=== PATIENT | male | born 1955 | race Caucasian/White ===

== ENCOUNTER → 2019-06-15 15:16 | Outpatient (CLI) | payer MEDICARE, SELFPAY ==
[2019-06-15 18:15] LABS: Anion Gap 9 (5-15); BUN 18 mg/dL (7-18); BUN/Creat Ratio 14.6 RATIO (10-20); Calcium,Total 9.1 mg/dL (8.5-10.1); Chloride 104 mmol/L (98-107); Cholesterol 201 mg/dL (200); Creatinine, Serum 1.23 mg/dL (0.70-1.30); EST Glomerular Filtration Rate 63 mL/min (>60); Est Glom Filt Rate - Afr Amer 76 mL/min (>60); Glucose 93 mg/dL (74-106); High Density Lipoprotein 24 mg/dL; PSA,Total - Annual Screen 1.08 ng/mL (0.00-4.00); Potassium 3.9 mmol/L (3.5-5.1); Sodium Level 139 mmol/L (136-145); Triglycerides 607 mg/dL
[2019-06-15 18:20] LABS: Hemoglobin A1c 5.8 % (4.2-6.3)
== END ==
PROVIDERS: Family Provider Family Medicine; PCP Family Medicine; Referring Provider Family Medicine; Visit Provider Family Medicine
DX: Z00.00 Encounter for general adult medical examination without abnormal findings (principal); E66.01 Morbid (severe) obesity due to excess calories; N40.0 Benign prostatic hyperplasia without lower urinary tract symptoms
CPT/HCPCS: 36415; 80048; 80061; 83036; 84153; G0103

== ENCOUNTER → 2019-08-09 14:55 | Outpatient (CLI) | payer MEDICARE, SELFPAY ==
[2019-08-09 18:29] LABS: AST(SGOT) 22 U/L (15-37); Alanine Aminotransfer ALT/SGPT 43 U/L (16-61); Cholesterol 156 mg/dL (200); High Density Lipoprotein 23 mg/dL; Triglycerides 627 mg/dL
== END ==
PROVIDERS: Family Provider Family Medicine; PCP Family Medicine; Visit Provider Family Medicine
DX: E78.5 Hyperlipidemia, unspecified (principal)
CPT/HCPCS: 36415; 80061; 84450; 84460

== ENCOUNTER → 2020-01-24 10:35 | Outpatient (CLI) | payer MEDICARE, SELFPAY ==
[2020-01-24 12:23] LABS: AST(SGOT) 14 U/L (15-37); Alanine Aminotransfer ALT/SGPT 34 U/L (16-61); Cholesterol 129 mg/dL (200); High Density Lipoprotein 27 mg/dL; Triglycerides 281 mg/dL; Very Low Density Lipoprotein 56 mg/dL (5-40)
== END ==
PROVIDERS: PCP Family Medicine; Visit Provider Family Medicine
DX: E78.5 Hyperlipidemia, unspecified (principal)
CPT/HCPCS: 36415; 80061; 84450; 84460

== ENCOUNTER → 2020-08-28 13:11 | Outpatient (CLI) | payer MEDICARE, SELFPAY ==
--- NOTE | 2020-08-28 14:44 | NEURO ---
NCS and/or EMG Patient Report Ordering Doctor: Rhonda Hunter DATE OF SERVICE: 08/28/20 Indication: Bilateral hand numbness and wrist pain (right greater than left). Evaluate for median nerve impingement and/or cervical radiculopathy. Findings: Nerve conduction studies were performed in the right and left upper extremities. The right median motor study recording the abductor pollicis brevis showed a normal amplitude, prolonged distal latency and slowed conduction velocity. The right ulnar motor study recording the abductor digiti minimi showed a normal amplitude, normal distal latency and normal conduction velocity. No conduction block or focal slowing was present across the elbow. The right median sensory response recording digit two showed an absent response. The right median sensory response recording digit three showed an absent response.The right ulnar sensory response recording digit five showed a normal amplitude, normal latency and borderline conduction velocity. The right radial sensory response recording over the extensor snuff box showed a normal amplitude, latency and conduction velocity. The left median motor study recording the abductor pollicis brevis showed a normal amplitude, prolonged distal latency and slowed conduction velocity. The left ulnar motor study recording the abductor digiti minimi showed a normal amplitude, normal distal latency and normal conduction velocity. No conduction block or focal slowing was present across the elbow. The left median sensory response recording digit two showed a reduced amplitude, prolonged latency and slowed conduction velocity. The left median sensory response recording digit three showed a reduced amplitude, prolonged latency and slowed conduction velocity. The left ulnar sensory response recording digit five showed a normal amplitude, latency and conduction velocity. The left radial sensory response recording over the extensor snuff box showed a normal amplitude, latency and conduction velocity. Right median-ulnar lumbrical / interosseous motor latencies showed a normal median latency compared to the ulnar. Left median-ulnar lumbrical / interosseous motor latencies showed a normal median latency compared to the ulnar. Needle EMG of the right upper extremity and cervical paraspinal muscles was performed. No denervation was seen in any muscle. The right abductor pollicis brevis muscle revealed motor units which were large amplitude, long duration, polyphasic with reduced recruitment. All other examined muscled revealed normal motor unit morphology, activation and recruitment patterns. Needle EMG of the left abductor pollicis brevis muscle was performed. No active denervation was seen. Motor units were large amplitude, long duration, polyphasic with reduced recruitment. Impression: This is an abnormal study. There is electrophysiologic evidence of median neuropathy across the wrist on both sides (severe on the right, moderately severe on the left). These findings are compatible with the clinical diagnosis of carpal tunnel syndrome. In addition, there is no electrophysiologic evidence of cervical radiculopathy or other entrapment neuropathy in the right upper extremity. Mychal Hatch D.O.
== END ==
PROVIDERS: PCP Family Medicine; Referring Provider Family Medicine; Visit Provider Family Medicine
DX: R20.0 Anesthesia of skin (principal)
CPT/HCPCS: 95885; 95886; 95913

== ENCOUNTER 2021-11-02 11:10 | Outpatient (CLI) | payer MEDICARE, SELFPAY ==
[2021-11-02 12:38] LABS: AST(SGOT) 20 U/L (15-37); Alanine Aminotransfer ALT/SGPT 44 U/L (16-61); Cholesterol 138 mg/dL (200); High Density Lipoprotein 30 mg/dL; PSA,Total - Annual Screen 0.77 ng/mL (0.00-4.00); Triglycerides 266 mg/dL; Very Low Density Lipoprotein 53 mg/dL (5-40)
== END 2021-11-02 23:59 | disposition home or self-care (01) ==
LOC: MFPLAB 11:13
PROVIDERS: PCP Family Medicine; Referring Provider Family Medicine; Visit Provider Family Medicine
DX: E78.5 Hyperlipidemia, unspecified (principal); Z12.5 Encounter for screening for malignant neoplasm of prostate
CPT/HCPCS: 36415; 80061; 84153; 84450; 84460; G0103

== ENCOUNTER → 2022-11-04 | Outpatient (CLI) | payer MEDICARE, SELFPAY ==
[2022-11-04 12:29] LABS: AST(SGOT) 19 U/L (15-37); Alanine Aminotransfer ALT/SGPT 36 U/L (16-61); Cholesterol 145 mg/dL (200); High Density Lipoprotein 29 mg/dL; PSA,Total - Annual Screen 0.75 ng/mL (0.00-4.00); Triglycerides 306 mg/dL; Very Low Density Lipoprotein 61 mg/dL (5-40)
[2022-11-04 12:53] LABS: Hemoglobin A1c 5.9 % (3.8-5.6)
== END | disposition home or self-care (01) ==
PROVIDERS: PCP Family Medicine; Referring Provider Family Medicine; Visit Provider Family Medicine
DX: Z00.00 Encounter for general adult medical examination without abnormal findings (principal); E66.01 Morbid (severe) obesity due to excess calories; E78.5 Hyperlipidemia, unspecified; Z12.5 Encounter for screening for malignant neoplasm of prostate
CPT/HCPCS: 36415; 80061; 83036; 84153; 84450; 84460; G0103

== ENCOUNTER 2023-07-09 14:30 | Outpatient (RCR) | payer MEDICARE, SELFPAY ==
--- NOTE | 2023-07-02 15:09 | HP.PTEVAL_ITS ---
Patient's Visit Information Visit Information Visit Information: STAN LOREDO is a 67 year old M referred to Physical Therapy by Dr. Rhonda Hunter MD with a diagnosis of L shoulder strain. Date of Evaluation: 07/02/23 Physical Therapist: Donovan Hardy, TYT, OCS, CSCS Visit Plan Frequency: 1x/Week Duration: 4-6 Weeks Plan: weekly x2-4 as needed to ensure painfree without meds, regain painfree ROM and get I with appropriate strength RC or scap. next session check if painfree and good ROM then teach phase 3 and consider d/c Subjective Subjective: L shoulder hurt for a week. Not sure why. Two weeks ago was moving furniture that may have aggravated it but did not do anything to it. Could not get dresses that Friday. Went to Massage on Friday. Went to doctor last Friday still with pain. been on that 3 days and seems like it has been back to normal. Was put on ibuprofen. Took it for 3-4 days and now is backing off of it. It hurts top of L shoulder and worse with arm movement. Could not move arm or button anything. It has now felt good for 2 days. Activity is normal for last two days and split firewood last ngiht without a problem. Seems 100% back to normal right now. Sleeping well now but was hard last week. 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 Able to do them right now, last week would be tough. Pain L shoulder: Pain Intensity (Out of 10): 0 Pain Intensity Range: 0 and 9 Comment: not in 2-3 days Objective Objective: Walks and transfers I into PT. Forward head adn protracted scap posture, Pec tightness noticeable. Tender to palpation over L supraspinatus insertion and bursa point. AROM B shoulders is tight in flexion but symmetrical , slight pain end range L, haroon/ir symmetrical but slight L end range pain. elbows and scapula and wrists WFL with some tightness with scapular depression and retracion B. reflexes 2/3 bi and tri B Sensation B UE WNL to gross light touch strength is 4+/5 in B shoulders. Some pain with er and flexion resisted. + HK and + neer on L - ext rotation lag test. Balance/Special Test Scores Quick DASH Score: 47.7250 Goals Goal 1:: Remain 100% better with activity without ibuprofen Goal Time Frame: 4-6 Weeks Goal 2:: I appropr HEP to minimize chance of returning pain in future Goal Time Frame: 4-6 Weeks Rehabilitation Potential Physical Therapy Diagnosis: L shoulder pain which was limiting function but is much improved. Rehabilitation Potential: Excellent Anticipated Interventions Patient/Client Instruction: Educate patient on: Condition and Plan of Care For the Purpose of:: To decrease pain, To improve nutrient delivery to tissue, To improve muscle performance and motor function, To increase tolerance to activity/condition/position, To improve ability of physical actions for home/community/work/leisure and To decrease soft tissue restriction Therapeutic Exercise to Include: Strength training, Flexibilty training, Passive ROM and Active ROM For the Purpose of:: To decrease pain, To increase ROM, To improve nutrient delivery to tissue, To improve muscle performance and motor function and To increase tolerance to activity/condition/position Text: Thank you for the opportunity to evaluate your patient. For Medicare and Medicare HMO plans, please review the plan of care and approve it. It will need to be FAXED BACK to us at [phone] for Medicare purposes. For Medicare only, by signing this I certify the plan of care. Please let me know if there are questions or concerns regarding this plan of care. Physician Signature:_ Date:
--- NOTE | 2023-10-24 14:25 | HP.PTDCNRP_ITS ---
Patient Information Patient Information: STAN LOREDO was seen in my office for initial evaluation on 07/02/23. The following Plan of Care was established for this patient: POC Established Initial Frequency: 1x/Week Initial Duration: 4-6 Weeks Anticipated Interventions Patient/Client Instruction: Educate patient on: Condition and Plan of Care For the Purpose of:: To decrease pain, To improve nutrient delivery to tissue, To improve muscle performance and motor function, To increase tolerance to activity/condition/position, To improve ability of physical actions for home/ community/work/leisure and To decrease soft tissue restriction Therapeutic Exercise to Include: Strength training, Flexibilty training, Passive ROM and Active ROM For the Purpose of:: To decrease pain, To increase ROM, To improve nutrient delivery to tissue, To improve muscle performance and motor function and To increase tolerance to activity/condition/position Last Seen Last Seen: This patient was last seen in our office 07/09/24. Pertinent comments regarding their Physical therapy will appear below: Pt seen 2 visits of PC adn was to f/u two weeks later but did not return. At this point, it has been over 3 months and I will discontinue due to nonattendance At this point I will be discontinuing this patient from physical therapy. I would be happy to see this patient again in the future if found appropriate by the physician. Thank you! Donovan Hardy, DPT, OCS, CSCS Balance/Gait/Functional tests Balance/Special Test Scores Quick DASH Score: 47.7211
== END 2023-07-09 19:00 | disposition home or self-care (01) ==
LOC: PT 14:30
PROVIDERS: PCP Family Medicine; Referring Provider Family Medicine; Visit Provider Family Medicine
DX: S43.402D Unspecified sprain of left shoulder joint, subsequent encounter (principal)
CPT/HCPCS: 97110; 97161

== ENCOUNTER 2023-11-14 04:49 | Emergency (ER) | payer MEDICARE, SELFPAY ==
[2023-11-14 04:50] VITALS: BP 173/90; PULSE 76; RESP 20; TEMP 36.7; O2SAT 94; BMI 42.3
--- NOTE | 2023-11-14 05:08 | CT_ITS ---
EXAM: CT ABDOMEN AND PELVIS WITHOUT INTRAVENOUS CONTRAST CLINICAL INDICATION: left flank pain TECHNIQUE: Helically acquired images were obtained of the abdomen and pelvis without intravenous contrast. This CT exam was performed using one or more of the following dose reduction techniques: automated exposure control, adjustment of the mA and/or kV according to patient size, and/or use of iterative reconstruction technique. RADIATION DOSE: CTDIvol = 22.86 mGy, DLP = 1136.52 mGy-cm COMPARISON: No relevant prior studies available. FINDINGS: LOWER THORAX: Unremarkable. Lung bases are clear. No cardiomegaly. No significant pericardial effusion. ABDOMEN: LIVER: There is diffuse low-attenuation of the liver. Hepatomegaly. GALLBLADDER AND BILE DUCTS: Unremarkable. No calcified gallstones. No gallbladder distention or wall edema. No intra- or extrahepatic biliary ductal dilation. PANCREAS: Unremarkable. No focal cystic mass. SPLEEN: Unremarkable. Normal size without focal cystic or solid mass. ADRENALS: Unremarkable. No nodules. KIDNEYS AND URETERS: Mild left hydroureteronephrosis due to a 2 mm stone at the left ureterovesical junction. Nonobstructing stone measuring 6 x 7 x 12 mm lower pole left kidney. Nonobstructing stone measuring 17 x 7 x 8 mm upper pole left kidney. Simple left renal cyst. No follow-up of this simple cyst is necessary. STOMACH AND BOWEL: Unremarkable. No stomach or bowel distention. No focal inflammatory change. PELVIS: APPENDIX: No evidence of acute appendicitis. BLADDER: Unremarkable. REPRODUCTIVE: Unremarkable as visualized. No mass. ABDOMEN and PELVIS: INTRAPERITONEAL SPACE: Unremarkable. No ascites or other fluid collection. No free air. BONES/JOINTS: Unremarkable. No suspicious lytic or blastic abnormality. SOFT TISSUES: Unremarkable. No discrete abdominal or pelvic wall hernia. VASCULATURE: Unremarkable. Abdominal aorta is non-dilated. LYMPH NODES: Unremarkable. No enlarged lymph nodes. CT/Abdomen/Pelvis without Cont IMPRESSION: 1. Mild left hydroureteronephrosis due to a 2 mm stone at the left ureterovesical junction. 2. Enlarged fatty liver. 3. Nonobstructing stone measuring 6 x 7 x 12 mm lower pole left kidney. Nonobstructing stone measuring 17 x 7 x 8 mm upper pole left kidney. Electronically Signed: Prashant Celis MD at 5:47 EDT ,
[2023-11-14] MEDS: 0.9% Normal Saline (1000mL) 1,000 ML 999 ML IV (05:13)
[2023-11-14] MEDS: Ketorolac 15 MG/ML Vial IV (05:14)
[2023-11-14] MEDS: Ondansetron 4 MG/2 ML Vial IV (05:14)
[2023-11-14 05:17] LABS: Basophil# 0.05 X10^3/uL; Basophil% 0.8 % (0-1); Eosinophil# 0.11 X10^3/uL; Eosinophils% 1.7 % (0-5); Hematocrit 48.2 % (40-54); Hemoglobin 15.9 g/dL (13.0-16.5); Lymphocyte % 15.1 % (19-41); Mean Corpuscular Hgb 30.2 pg (27.0-32.0); Mean Corpuscular Volume 91.6 fL (80-94); Mean Platelet Vol. 8.6 fl (6.2-12.0); Monocyte# 0.43 X10^3/uL; Monocyte% 6.5 % (0-10); NRBC Flagged by Analyzer 0 % (0-5); Neutrophil # 4.95 X10^3/uL (2.7-7.7); Neutrophil % 74.8 % (47-70); Platelet Count 192 K/mm3 (150-450); RBC Distribution Width CV 12.5 % (11.6-14.6); RBC Distribution Width SD 41.7 fl (35.1-43.9); Red Blood Count 5.26 M/mm3 (4.6-6.2); White Blood Count 6.6 K/mm3 (4.4-11.0)
[2023-11-14 05:41] LABS: Anion Gap 5 (5-15); BUN 14 mg/dL (7-18); BUN/Creat Ratio 10.4 RATIO (10-20); Calcium,Total 8.8 mg/dL (8.5-10.1); Chloride 108 mmol/L (98-107); Creatinine, Serum 1.35 mg/dL (0.70-1.30); EST Glomerular Filtration Rate 56 mL/min (>60); Est Glom Filt Rate - Afr Amer 67 mL/min (>60); Estimated Creatinine Clearance 65.91 ml/min; Glucose 180 mg/dL (74-106); Potassium 3.7 mmol/L (3.5-5.1); Sodium Level 139 mmol/L (136-145)
[2023-11-14 05:47] LABS: Color, Urine Yellow (Yellow); Glucose, Dipstick Normal (Normal); Ketone-Dipstick 5 mg/dl (Negative); Leukocyte Esterase-Dipstick 25 /ul (Negative); Nitrite-Dipstick Negative (Negative); Occult Blood-Urine 250 /ul (Negative); Protein-Dipstick 100 mg/dl (Negative); Urine Bilirubin Dipstick Negative (Negative); Urine Clarity Clear (Clear); Urine Urobilinogen Normal (Normal)
[2023-11-14 05:54] LABS: Bacteria 2+ /hpf (None Seen); Hyaline Cast 0-5 SEEN /lpf (0-5); Mucous, Urine 2+ /hpf (<or=2+); Red Blood Cells-Urine 10-25 SEEN /hpf (0-5); Squamous Epithelial Cells - UA 0-5 SEEN /hpf (0-5); White Blood Cells 0-5 SEEN /hpf (0-5)
--- NOTE | 2023-11-14 06:11 | EX.ED.DYSGE1 ---
HPI History of Present Illness Chief Complaint: Abd Pain Informant: patient and spouse/S.O. Narrative Narrative: Patient is a 68-year-old male with past medical history of hyperlipidemia. He states that he went to bed feeling normal then awoke with sharp left-sided abdominal pain and nausea associated with the pain. He denies any recent trauma or excessive activity. He denies any recent constipation or loose stool/diarrhea. He also denies any dysuria or hematuria. He states that he tried [id number] medication without symptom improvement and secondary to this comes in for evaluation [facility] Medical History High cholesterol Home Medications atorvastatin 20 mg tablet 20 mg PO QHS 11/14/23 [History Last Taken Unknown] cephalexin 500 mg capsule 500 mg PO TID 7 days #21 caps 11/14/23 [Rx Last Taken Unknown] ketorolac 10 mg tablet 10 mg PO 4X/DAY PRN pain 5 days #20 tabs 11/14/23 [Rx Last Taken Unknown] ondansetron 4 mg disintegrating tablet 4 mg PO TID PRN nausea and vomiting #21 tabs 11/14/23 [Rx Last Taken Unknown] oxycodone-acetaminophen 5 mg-325 mg tablet (Percocet) 1 tab PO Q6H PRN pain 3 days #12 tabs 11/14/23 [Rx Last Taken Unknown] tamsulosin 0.4 mg capsule (Flomax) 0.4 mg PO DAILY #14 caps 11/14/23 [Rx Last Taken Unknown] Allergy/AdvReac Type Severity Reaction Status Date / Time No Known Allergies Allergy Verified 11/14/23 04:57 Social History Smoking Status: Never smoker ROS [facility] ED Constitutional Constitutional ED: Denies chills or fever(s) ENT ENT ED: Denies sore throat Cardiovascular Cardiovascular: Denies chest pain Respiratory/Chest Respiratory/Chest: Denies cough or dyspnea Gastrointestinal Gastrointestinal: Reports abdominal pain and nausea; Denies diarrhea or vomiting Genitourinary Genitourinary ED: Denies dysuria or hematuria Musculoskeletal Musculoskeletal: Reports back pain; Denies myalgias Integumentary Denies rash Neurologic Neurologic: Denies headache(s) Hematologic/Lymphatic Hematologic/Lymphatic: Denies easy bleeding or easy bruising EXAM Physical Exam Const Vital Signs: 11/14/23 04:50 Temperature 98.0 F Temperature Source Oral Pulse Rate 76 Respiratory Rate 20 H Blood Pressure 173/90 H Blood Pressure Mean 117 Pulse Ox 94 Oxygen Delivery Method Room Air Positive well nourished, well developed and obese General Appearance ED: well developed; Negative for pallor Nutritional Appearance: obese HEENT HEENT Narrative: Normocephalic atraumatic Eyes PERRL and EOMs intact bilaterally General Eye ED: Negative for scleral icterus Neck supple Neck Narrative: No nuchal rigidity or meningeal signs noted Resp normal respiratory effort and clear to auscultation bilaterally Cardio regular rate and regular rhythm Rate: other Other Details: Radial and carotid pulses are equal and symmetric GI non-distended and no masses GI Narrative: Abdomen is soft and nondistended with normal active bowel sounds. There is pain on palpation in the left mid to upper abdomen without voluntary guarding or rigidity. No pulsatile mass or fluid wave Auscultation: normoactive bowel sounds Palpation: soft Back/Spine Back/Spine Narrative: Positive left CVA pain noted Extremity normal to inspection Neuro oriented x3, CN's II-XII intact bilaterally and no sensory deficits noted Sensorium / Orientation: alert Motor Exam: strength 5/5 throughout Psych mental status grossly normal Skin no rashes or lesions noted and no wounds General Skin Exam: Negative for jaundice or pallor MDM MDM MDM Narrative Medical decision making narrative: Patient presented to the ER hypertensive otherwise with stable vitals. He reported a rather sudden onset of pain localized around the left sided abdomen. Differential diagnosis is for kidney stone versus UTI versus pyelonephritis versus diverticulitis. As patient's pain is located mainly around the left flank region this is higher likelihood for stone and it is diverticular disease. Therefore basic labs were obtained as well as a noncontrast CT scan. Labs showed no clinically significant findings such as acute kidney injury or elevation to the white count or severe electrolyte abnormality. Urine sample did show blood consistent with stone and there is +2 bacteria with no white blood cells. This is most likely normal urogenital yumiko but with the patient having a CT scan that documented a stone with hydroureteronephrosis there is potential for developing infection so he will be placed on antibiotics. At this time the patient does not have MEGHNA or urosepsis he does report improvement of pain on the Toradol and therefore there is no need for emergent urology consultation or admission. Patient will be discharged with symptomatic medications and can follow-up with urology on an outpatient basis to have potential stent placement if he is not able to spontaneously pass the stone History & Record Review Discussion w/independent historian: Patient and Significant other Lab Data Labs: Laboratory Results - last 24 hr 11/14/23 11/14/23 05:04 05:35 WBC 6.6 RBC 5.26 Hgb 15.9 Hct 48.2 MCV 91.6 MCH 30.2 MCHC 33.0 RDW Std Deviation 41.7 RDW Coeff of Mamadou 12.5 Plt Count 192 MPV 8.6 Immature Gran % (Auto) 1.100 H Neut % (Auto) 74.8 H Lymph % (Auto) 15.1 L [place] % (Auto) 6.5 Eos % (Auto) 1.7 Baso % (Auto) 0.8 Absolute Neuts (auto) 5.0 Absolute Lymphs (auto) 1.00 Nucleated RBC % 0 Sodium 139 Potassium 3.7 Chloride 108 H Carbon Dioxide 26.0 Anion Gap 5 BUN 14 Creatinine 1.35 H Estim Creat Clear Calc 65.91 Est GFR (MDRD) Af Amer 67 Est GFR (MDRD) Non-Af 56 L BUN/Creatinine Ratio 10.4 Glucose 180 H Calcium 8.8 Urine Color Yellow Urine Clarity Clear Urine pH 5.0 Ur Specific [place] 1.030 Urine Protein 100 H Urine Glucose (UA) Normal Urine Ketones 5 H Urine Occult Blood 250 H Urine Nitrite Negative Urine Bilirubin Negative Urine Urobilinogen Normal Ur Leukocyte Esterase 25 H Urine RBC 10-25 SEEN Urine WBC 0-5 SEEN Ur Squamous Epith Cells 0-5 SEEN Urine Bacteria 2+ Hyaline Casts 0-5 SEEN Urine Mucus 2+ Radiography Diagnostic Testing: Clinical Impression(s) from Imaging Studies Abdomen/Pelvis CT 11/14/23 05:08 IMPRESSION: 1. Mild left hydroureteronephrosis due to a 2 mm stone at the left ureterovesical junction. 2. Enlarged fatty liver. 3. Nonobstructing stone measuring 6 x 7 x 12 mm lower pole left kidney. Nonobstructing stone measuring 17 x 7 x 8 mm upper pole left kidney. Electronically Signed: Prashant Celis MD at 5:47 EDT , Discharge Plan Triage Chief Complaint: Abd Pain ED Provider: Abel Loaiza Dx/Rx/DC Orders Clinical Impression: Renal colic, Kidney stone on left side, Hyperlipidemia Instructions: ED Kidney Stone with Pain Prescriptions: New ketorolac 10 mg tablet 10 mg PO 4X/DAY PRN (Reason: pain) 5 Days Qty: 20 0RF tamsulosin [Flomax] 0.4 mg capsule 0.4 mg PO DAILY Qty: 14 0RF ondansetron 4 mg tablet,disintegrating 4 mg PO TID PRN (Reason: nausea and vomiting) Qty: 21 0RF cephalexin 500 mg capsule 500 mg PO TID 7 Days Qty: 21 0RF oxycodone-acetaminophen [Percocet] 5-325 mg tablet 1 tab PO Q6H PRN (Reason: pain) 3 Days Qty: 12 0RF No Action atorvastatin 20 mg tablet 20 mg PO QHS Primary Care Provider: Rhonda Hunter Referrals: Rhonda Hunter MD [Primary Care Provider] - Jean Galindo MD [Med Staff - Active Staff] - Activity Restrictions/Additional Instructions: Please keep yourself well-hydrated and stay active to help pass your kidney stone. Return to the ER if you develop a fever over 100.4 or your pain is not controlled with the prescribed medication. Otherwise follow-up with urology for repeat evaluation and to discuss need for potential stent placement if you do not pass your stone spontaneously Disposition Disposition: Home, Self Care
[2023-11-14 06:47] VITALS: BP 171/90; PULSE 84; RESP 16; TEMP 36.7; O2SAT 97
== END 2023-11-14 06:50 | disposition home or self-care (01) ==
PROVIDERS: Emergency Provider Emergency Medicine; PCP Family Medicine; Visit Provider Emergency Medicine
DX: N13.2 Hydronephrosis with renal and ureteral calculous obstruction (principal); N23 Unspecified renal colic; E78.00 Pure hypercholesterolemia, unspecified; Z79.899 Other long term (current) drug therapy
CPT/HCPCS: 74176; 80048; 81001; 85025; 96361; 96374; 96375; 99282; J7030; A4216; J2405

== ENCOUNTER → 2024-04-01 | Outpatient (CLI) | payer MEDICARE, SELFPAY ==
--- NOTE | 2024-04-01 11:51 | US_ITS ---
STUDY: RENAL ULTRASOUND - COMPLETE REASON FOR EXAM: Male, 68 years old. HEMATURIA, FLANK PAIN TECHNIQUE: Ultrasound evaluation of the kidneys was performed with real-time and static honeycutt-scale imaging. COMPARISON: Comparison is made with prior CT scan of the abdomen and pelvis dated November 14, 2023. FINDINGS: RIGHT KIDNEY: Normal location of the right kidney, which is normal in size. The right kidney measures 12 cm x 5.6 cm x 5.8 cm. There is a normal cortex of the right kidney. The renal cortex measures 1.6 cm. There is no right renal mass or cyst. There are 2 tiny nonobstructive intrarenal calculi in the lower pole. The largest calculus measures 5 mm x 4 mm x 4 mm. There is no right hydronephrosis. DISTAL RIGHT URETER: There is non-visualization of the distal right ureter. There is no demonstrated right ureterovesical junction calculus. There is a visualized right ureteral jet. LEFT KIDNEY: Normal location of the left kidney, which is normal in size. The left kidney measures 13.7 cm x 5.9 cm x 6.5 cm. There is a normal cortex of the left kidney. The renal cortex measures 1.9 cm. 3 cysts are seen. The largest cyst measures 5.9 cm x 5.6 cm x 4.5 cm. This is in the midpole. There is a 5 mm x 5 mm x 4 mm nonobstructive calculus in the midportion of the kidney. There is no left hydronephrosis. DISTAL LEFT URETER: There is non-visualization of the distal left ureter. There is no demonstrated left ureterovesical junction calculus. There is a visualized left ureteral jet. BLADDER: The distended urinary bladder has a volume of 96.2 ml. There is a normal wall thickness of the distended urinary bladder. There is no demonstrated mass within the urinary bladder. There are no demonstrated bladder calculi. US/Kidney and Bladder IMPRESSION: Nonobstructive bilateral intrarenal calculi. Left renal cyst. Incidental note is made of fatty infiltration of the liver. Electronically Signed: Sergio Ibrahim MD at 15:17 EDT ,
== END | disposition home or self-care (01) ==
LOC: US 11:50
PROVIDERS: PCP Family Medicine; Referring Provider Family Medicine; Visit Provider Family Medicine
DX: R31.9 Hematuria, unspecified (principal)
CPT/HCPCS: 76770

== ENCOUNTER 2024-09-14 13:53 | Emergency (ER) | payer MEDICARE, SELFPAY ==
[2024-09-14 13:53] VITALS: BP 147/74; PULSE 69; RESP 16; TEMP 36.8; O2SAT 99; BMI 42.3
--- NOTE | 2024-09-14 14:15 | CT_ITS ---
EXAM: CT Abdomen and Pelvis Without Intravenous Contrast CLINICAL INDICATION: TECHNIQUE: Axial computed tomography images of the abdomen and pelvis without intravenous contrast. This CT exam was performed using one or more of the following dose reduction techniques: automated exposure control, adjustment of the mA and/or kV according to patient size, and/or use of iterative reconstruction technique. COMPARISON: No relevant prior studies available. FINDINGS: LUNG BASES: 3 mm ground-glass nodule of the right lung base. No consolidation. ABDOMEN: LIVER: Hepatomegaly with fatty infiltration. GALLBLADDER AND BILE DUCTS: Unremarkable. No calcified stones. No ductal dilation. PANCREAS: Unremarkable. No ductal dilation. SPLEEN: Unremarkable. No splenomegaly. ADRENALS: Unremarkable. No mass. KIDNEYS AND URETERS: 3 mm obstructing calculus of the distal left ureter resulting in moderate hydroureteronephrosis. Left renal pelvic calculi, largest measuring up to 2.0 cm. Left renal and parapelvic cysts. STOMACH AND BOWEL: Unremarkable. No obstruction. No mucosal thickening. PELVIS: APPENDIX: No findings to suggest acute appendicitis. BLADDER: Unremarkable. No stones. REPRODUCTIVE: Unremarkable as visualized. ABDOMEN and PELVIS: INTRAPERITONEAL SPACE: Unremarkable. No free air. No significant fluid collection. BONES/JOINTS: No acute fracture. No dislocation. SOFT TISSUES: Unremarkable. VASCULATURE: Unremarkable. No abdominal aortic aneurysm. LYMPH NODES: Unremarkable. No enlarged lymph nodes. CT/Abdomen/Pelvis without Cont IMPRESSION: 1. 3 mm obstructing calculus of the distal left ureter resulting in moderate h ydroureteronephrosis. 2. 3 mm ground-glass nodule of the right lung base. Repeat CT chest in 6 nidia hs is recommended. 3. Hepatomegaly with fatty infiltration. Reading [facility]
[2024-09-14] MEDS: Ketorolac 15 MG/ML Vial IV (14:21)
[2024-09-14] MEDS: Morphine 4 MG/ML Syringe IV (14:21)
[2024-09-14] MEDS: Ondansetron 4 MG/2 ML Vial IV (14:21)
[2024-09-14 14:36] LABS: Absolute Lymphocyte Count 0.63 X10^3/uL (0.83-4.51); Absolute Neutrophil Count 8.7 X10^3/uL (2.0-7.7); Basophil# 0.08 X10^3/uL; Basophil% 0.8 % (0-1); Eosinophil# 0.02 X10^3/uL; Eosinophils% 0.2 % (0-5); Hematocrit 47.4 % (40-54); Hemoglobin 16.2 g/dL (13.0-16.5); Lymphocyte # 0.63 X10^3/ul (0.83-4.51); Lymphocyte % 6.3 % (19-41); Mean Corp Hgb Conc 34.2 g/dL (32-36); Mean Corpuscular Hgb 30.2 pg (27.0-32.0); Mean Corpuscular Volume 88.3 fL (80-94); Mean Platelet Vol. 8.7 fl (6.2-12.0); NRBC Flagged by Analyzer 0 % (0-5); Neutrophil # 8.72 X10^3/uL (2.7-7.7); Neutrophil % 86.9 % (47-70); Platelet Count 222 K/mm3 (150-450); RBC Distribution Width CV 12.3 % (11.6-14.6); RBC Distribution Width SD 39.4 fl (35.1-43.9); Red Blood Count 5.37 M/mm3 (4.6-6.2)
[2024-09-14 14:48] LABS: Anion Gap 10 (5-15); BUN 15 mg/dL (7-18); BUN/Creat Ratio 11.6 RATIO (10-20); Calcium,Total 9.5 mg/dL (8.5-10.1); Chloride 104 mmol/L (98-107); Creatinine, Serum 1.29 mg/dL (0.70-1.30); EST Glomerular Filtration Rate 58 mL/min (>60); Est Glom Filt Rate - Afr Amer 71 mL/min (>60); Glucose 131 mg/dL (74-106); Potassium 4.4 mmol/L (3.5-5.1); Sodium Level 138 mmol/L (136-145)
--- NOTE | 2024-09-14 14:50 | EX.ED.DYSGE1 ---
HPI History of Present Illness Chief Complaint: Abd Pain Detail of Chief Complaint: Abrupt onset of left sided abdominal pain radiating to the groin Informant: patient and spouse/S.O. Onset/Context/Timing Onset: Today (Awakened at 0100) Context: Sudden Onset Timing: Continuous and Waxes and wanes Quality: Pain Location: Left lower quadrant radiating to the groin Current Severity: Moderate Maximum Severity: Severe Worsened by: Nothing Relieved by: Nothing Associated Symptoms Associated Symptoms: Nausea with dry heaves Narrative Narrative: Patient is a 68-year-old male. He presents with left lower quadrant abdominal pain that awoke him from sleep at 0100. He had nausea with dry heaves x 2. Pain does radiate to his groin. This is slightly different than the pain that he experienced 2 years ago when he had obstructing ureteral stone. He did take leftover cephalexin, ketorolac and Flomax. The pain is not as severe. Patient denies diarrhea or constipation. Patient denies history of diverticulosis or diverticulitis. Patient's has never undergone colonoscopy. Patient denies hematuria or dysuria. He does report urgency/frequency. There are no alleviating or exacerbating factors. Prior similar symptoms: Yes Recent Illness/Hospitalization: No PFSH PFSH Medical History Kidney stones High cholesterol Home Medications ?Medication ?Instructions ?Recorded ?Last Taken ?Type atorvastatin 20 mg tablet 20 mg PO QHS 11/14/23 Unknown History ketorolac 10 mg tablet 10 mg PO 4X/DAY PRN pain 5 days 11/14/23 Unknown Rx #20 tabs cephalexin 500 mg capsule 500 mg PO Q6 #28 CAPSULES 09/14/24 Unknown Rx hydrocodone-acetaminophen 5-325mg 1 tab PO Q6H PRN PRN Pain 3 days 09/14/24 Unknown Rx 5mg-325mg #10 TABLETS niacin 1 tab PO DAILY 09/14/24 Unknown History Allergy/AdvReac Type Severity Reaction Status Date / Time No Known Allergies Allergy Verified 09/14/24 13:55 Social History Smoking Status: Never smoker ROS ROS ED Constitutional Constitutional ED: Denies chills, fever(s), subjective, sweats or weight loss Eyes Eyes: Denies blurry vision or change in vision ENT ENT ED: Denies ear pain or rhinorrhea Cardiovascular Cardiovascular: Denies chest pain or palpitations Respiratory/Chest Respiratory/Chest: Denies cough, dyspnea or dyspnea on exertion Gastrointestinal Gastrointestinal: Reports abdominal pain, nausea and vomiting; Denies diarrhea or melena Genitourinary Genitourinary ED: Reports urinary frequency; Denies dysuria or hematuria Musculoskeletal Musculoskeletal: Denies arthralgias, back pain or myalgias Integumentary Denies Abrasions or rash Hematologic/Lymphatic Hematologic/Lymphatic: Denies easy bleeding or easy bruising EXAM Physical Exam Const Vital Signs: 09/14/24 13:53 09/14/24 15:53 Temperature 98.2 F Temperature Source Oral Pulse Rate 69 64 Respiratory Rate 16 16 Blood Pressure 147/74 H Blood Pressure Mean 98 Pulse Ox 99 95 Oxygen Delivery Method Room Air Room Air Positive well nourished and well developed General Appearance ED: well developed and NAD; Negative for cyanotic, diaphoretic or pallor HEENT Reports moist mucous membranes HEENT Narrative: Head is atraumatic and normocephalic. Ears are normal. Eyes PERRL and EOMs intact bilaterally General Eye ED: Negative for pale conjunctiva or scleral icterus Neck no lymphadenopathy, supple and no JVD Chest Wall inspection of chest normal Resp normal respiratory effort and clear to auscultation bilaterally Cardio regular rate, regular rhythm, S1 normal heart sound, S2 normal heart sound and no murmurs GI normal to inspection, nondistended, normoactive bowel sounds, non-distended and no masses; Negative for non-tender or hepatosplenomegaly GI Narrative: Minimal mild tenderness left lower quadrant to deep palpation. Palpation: soft Back/Spine no CVA tenderness Extremity normal to inspection General Extremety ED: Negative for edema or tenderness General Extremity: Negative for edema Neuro oriented x3 and CN's II-XII intact bilaterally Sensorium / Orientation: alert Psych mental status grossly normal Skin no rashes or lesions noted, no wounds and skin turgor normal General Skin Exam: elasticity normal; Negative for jaundice or pallor MDM MDM MDM Narrative Medical decision making narrative: Differential diagnosis is abdominal pain of unknown etiology, diverticulitis, obstructing ureteral stone. Workup included CAT scan of the abdomen pelvis without contrast, CBC to assess white count differential, BMP to assess renal function and UA to assess for infection. Patient was medicated with IV ketorolac and Zofran. History & Record Review Additional record(s) reviewed:: Prior ED visit (Seen past 2 to 3 years for ureteral calculus.) and Prior labs Lab Data Attestation: I reviewed the patient's lab results. Lab results narrative: CBC is remarkable for slight shift. Basic metabolic panel reveals creatinine of 1.29 with estimated GFR 58. Glucose is slight elevated 131 with a normal CO2 anion gap. Urinalysis reveals bacteria without pyuria. Culture was sent. Since he has an obstructing stone he was treated with cephalexin. He took a dose of cephalexin prior to arrival, which she had leftover from last ER visit for obstructing stone. Labs: Laboratory Results - last 24 hr 09/14/24 09/14/24 14:26 15:16 WBC 10.0 RBC 5.37 Hgb 16.2 Hct 47.4 MCV 88.3 MCH 30.2 MCHC 34.2 RDW Std Deviation 39.4 RDW Coeff of Mamadou 12.3 Plt Count 222 MPV 8.7 Immature Gran % (Auto) 0.800 Neut % (Auto) 86.9 H Lymph % (Auto) 6.3 L [place] % (Auto) 5.0 Eos % (Auto) 0.2 Baso % (Auto) 0.8 Absolute Neuts (auto) 8.7 H Absolute Lymphs (auto) 0.63 L Nucleated RBC % 0 Sodium 138 Potassium 4.4 Chloride 104 Carbon Dioxide 23.0 Anion Gap 10 BUN 15 Creatinine 1.29 Estim Creat Clear Calc 69.00 Est GFR (MDRD) Af Amer 71 Est GFR (MDRD) Non-Af 58 L BUN/Creatinine Ratio 11.6 Glucose 131 H Calcium 9.5 Urine Color Yellow Urine Clarity Sl. Cloudy Urine pH 5.0 Ur Specific Hallie 1.025 Urine Protein 30 H Urine Glucose (UA) Normal Urine Ketones Negative Urine Occult Blood 250 H Urine Nitrite Negative Urine Bilirubin Negative Urine Urobilinogen Normal Ur Leukocyte Esterase 25 H Urine RBC > 100 SEEN Urine WBC 0-5 SEEN Ur Squamous Epith Cells 0-5 SEEN Uric Acid Crystals 1+ Urine Bacteria 2+ Urine Mucus 1+ Macro is remarkable for soft gravity 1.025. Positive proteins, blood and leukoesterase. Negative nitrites. Awaiting microscopic. Patient was reassessed at 1540. He is pain-free. Radiography Diagnostic Testing: Clinical Impression(s) from Imaging Studies Abdomen/Pelvis CT 09/14/24 14:15 IMPRESSION: 1. 3 mm obstructing calculus of the distal left ureter resulting in moderate hydroureteronephrosis. 2. 3 mm ground-glass nodule of the right lung base. Repeat CT chest in 6 months is recommended. 3. Hepatomegaly with fatty infiltration. Reading Location: [facility] CT of the abdomen pelvis without contrast reveals multiple renal calculi and a mid to distal left ureteral calculi with hydronephrosis and hydroureter. Awaiting formal read by radiologist 1500. Discharge Plan Triage Chief Complaint: Abd Pain ED Provider: Giancarlo Darden Dx/Rx/DC Orders Clinical Impression: Hydronephrosis with urinary obstruction due to ureteral calculus, Left renal stone, Fatty liver, Elevated blood-pressure reading without diagnosis of hypertension, Bacteria in urine Instructions: ED Kidney Stone with Pain Prescriptions: New hydrocodone-acetaminophen 5-325 mg tablet 1 tab PO Q6H PRN PRN (Reason: Pain) 3 Days Qty: 10 0RF cephalexin 500 mg capsule 500 mg PO Q6 Qty: 28 0RF No Action atorvastatin 20 mg tablet 20 mg PO QHS ketorolac 10 mg tablet 10 mg PO 4X/DAY PRN (Reason: pain) 5 Days Qty: 20 0RF niacin 1 tab PO DAILY Primary Care Provider: Rhonda Hunter Referrals: Rhonda Hunter MD [Primary Care Provider] - 1-2 Weeks Jean Galindo MD [Med Staff - Active Staff] - 3-5 Days Activity Restrictions/Additional Instructions: 1. Contact Dr. Hunter to have your blood pressure reassessed since it has been elevated in the department. You also have elevated blood sugar and this will need to be reassessed as well. 2. You have been referred to Dr. Galindo for your obstructing stone. There is a greater than 95% chance she will pass this. 3. Return if you develop temperature greater than 100, shaking chills, have nausea and vomiting unable to eat or drink anything or if you are pain medicine does not control your discomfort. Print Language: Prydeinig Disposition Disposition: Home, Self Care
[2024-09-14 15:30] LABS: Color, Urine Yellow (Yellow); Glucose, Dipstick Normal (Normal); Ketone-Dipstick Negative (Negative); Leukocyte Esterase-Dipstick 25 /ul (Negative); Nitrite-Dipstick Negative (Negative); Occult Blood-Urine 250 /ul (Negative); Protein-Dipstick 30 mg/dl (Negative); Specific Gravity, Urine 1.025 (1.002-1.030); Urine Bilirubin Dipstick Negative (Negative); Urine Clarity Sl. Cloudy (Clear); Urine Urobilinogen Normal (Normal)
[2024-09-14 15:44] LABS: Red Blood Cells-Urine > 100 SEEN /hpf (0-5)
[2024-09-14 15:45] LABS: Bacteria 2+ /hpf (None Seen); Mucous, Urine 1+ /hpf (<or=2+); Squamous Epithelial Cells - UA 0-5 SEEN /hpf (0-5); Uric Acid Crystals Ur 1+ /hpf (<or=1+); White Blood Cells 0-5 SEEN /hpf (0-5)
[2024-09-14 15:53] VITALS: BP 169/96; PULSE 64; RESP 16; O2SAT 95
[2024-09-14 16:17] VITALS: BP 142/78; PULSE 70; RESP 16; TEMP 36.4; O2SAT 94
== END 2024-09-14 16:35 | disposition home or self-care (01) ==
PROVIDERS: Emergency Provider Emergency Medicine; PCP Family Medicine; Visit Provider Emergency Medicine
DX: N13.2 Hydronephrosis with renal and ureteral calculous obstruction (principal); K76.0 Fatty (change of) liver, not elsewhere classified; R03.0 Elevated blood-pressure reading, without diagnosis of hypertension; E78.00 Pure hypercholesterolemia, unspecified; R82.71 Bacteriuria; Z79.899 Other long term (current) drug therapy
CPT/HCPCS: 74176; 80048; 81001; 85025; 87086; 96374; 96375; 99282; A4216; J2405

== ENCOUNTER 2024-09-22 05:15 | Day surgery (SDC) | payer MEDICARE, SELFPAY ==
[2024-09-22] VITALS (10 sets, daily range): BP systolic 137–183; BP diastolic 67–87; PULSE 72–77; RESP 16–18; TEMP 36.8–37; O2SAT 92–98; BMI 41.2
[2024-09-22] MEDS: 0.9% Normal Saline (1000mL) 1,000 ML 15 ML IV (06:02)
--- NOTE | 2024-09-22 06:28 | PRE.ANES_ITS ---
ASA Classification* ASA Classification ASA Classification: 3 Assessment & Plan Anesthesia* Anesthesia Assessment Anesthesia Assessment: Discussed sedation and/or anesthesia options, risks, benefits, and alternatives with patient/parents/legal guardian/POA. Questions invited. The patient/parents/legal guardian/POA seems to understand and agrees to proceed with anesthesia plan. Reviewed the physical assessment, medical history, allergy history and patient home medications list prior to surgery/procedure/anesthetic and documented any changes. Performed airway and anesthesia risk assessments. Anesthesia Type Anesthesia Type: General (LMA versus [place] scope intubation.) History Source History Obtained from:: Patient and Chart Anesthesia Focused Assessment* Temperature: 98.4 F Pulse Rate: 74 Blood Pressure: 183/86 Respiratory Rate: 16 Pulse Ox: 98 Oxygen Delivery Method: Room Air Airway Assessment Mouth opens: >3 cm Mallampati Score: IV Teeth Condition: Chipped/Broken (Couple chipped teeth) and Missing (1 missing tooth. Rest are tight.) Neck Range of motion (ROM): Limited ROM Focused Labs Anesthesia Preop lab: CBC WBC 10.0 K/mm3 (4.4-11.0) 09/14/24 14:09/14/24 RBC 5.37 M/mm3 (4.6-6.2) 09/14/24 14:09/14/24 Hgb 16.2 g/dL (13.0-16.5) 09/14/24 14:26 09/14/24 Hct 47.4 % (40-54) 09/14/24 14:09/14/24 Plt Count 222 K/mm3 (150-450) 09/14/24 14:09/14/24 CHEMISTRY Potassium 4.4 mmol/L (3.5-5.1) 09/14/24 14:26 09/14/24 Sodium 138 mmol/L (136-145) 09/14/24 14:09/14/24 BUN 15 mg/dL (7-18) 09/14/24 14:09/14/24 Creatinine 1.29 mg/dL (0.70-1.30) 09/14/24 14:09/14/24 Glucose 131 mg/dL (74-106) H 09/14/24 14:09/14/24 COAG Pre-Assessment Diagnosis/Proposed Procedure Planned Operative Procedure(s): CYSTO STENT URETEROSCOPY LEFT Anesthesia History Anesthesia History - corporate responsibility officer: Anesthesia History - corporate responsibility officer Hx Hospitalization No 09/21/24 10:13 Any Problems With Anesthesia No 09/21/24 10:13 Cholinesterase deficiency No 09/21/24 10:13 You/Your Family Experience No 09/21/24 10:13 fever (hyperthermia) with Relationship Recent Exposure to Contagious No 09/22/24 05:45 Disease Does patient have nerve No 09/21/24 10:13 stimulator Patient instructed to have device shut off --Does patient have Pacemaker No 09/22/24 05:45 or ICD? When Was Last Pacemaker Check QUESTION #4 FULL TEXT: You/Your Family Experience fever (hyperthermia) with Anesthesia Last Oral Intake Last Oral intake: Last Oral Intake NPO since 23:00 09/22/24 05:45 Meds taken in AM with sips of No 09/22/24 05:45 water? Meds patient instructed to take am of surgery PONV PONV - corporate responsibility officer: PONV - corporate responsibility officer Female No 09/21/24 10:13 HX of Motion Sickness No 09/21/24 10:13 HX of N/V After Surgery No 09/21/24 10:13 Non-Smoker Yes 09/21/24 10:13 Duration of Surgery greater No 09/21/24 10:13 than 60 minutes Number of Risk Factors 1 09/21/24 10:13 PONV Score Low Risk 09/21/24 10:13 Height & Weight Height & Weight: Anesthesia: Height & Weight Height 5 ft 8 in 09/22/24 05:45 Weight: 123 kg 09/22/24 05:45 Body Mass Index (BMI) 41.2 09/22/24 05:45 Respiratory Assessment Respiratory Assessment - corporate responsibility officer: Respiratory Tract Infection Hx - corporate responsibility officer Hx Respiratory Tract Infection No 09/21/24 10:13 STOP Sleep Apnea STOP Sleep Apnea - corporate responsibility officer: STOP Sleep Apnea - corporate responsibility officer Hx Hypertension No 09/21/24 10:13 Hx Sleep Apnea Yes 09/21/24 10:13 CPAP Yes 09/21/24 10:13 BIPAP No 09/21/24 10:13 Do you snore loudly (louder than talking or can be heard Do you often feel tired/ fatigued/ sleepy during daytime? Has anyone observed you stop breathing during sleep? STOP Results Positive 09/21/24 10:13 QUESTION #5 FULL TEXT : Do you snore loudly (louder than talking or can be heard through closed doors)? Tobacco Use History Tobacco Use History - corporate responsibility officer: Tobacco Use History - corporate responsibility officer Tobacco Use Smoking Status Never smoker 09/21/24 10:13 Hx Tobacco Use No 09/21/24 10:13 Years Smoking Packs Smoked per Day Smoking Cessation Date was within the last 15 years Hx Smoking Cessation Date Hx Smoking Cessation Counseling Hematologic Medial History Hematologic Hx - corporate responsibility officer: Hematologic Medical Hx - soil sampler Hx of Blood Transfusion No 09/21/24 10:13 Hx of Transfusion in last 3 No 09/21/24 10:13 Months Date of Last Transfusion (if within last 3 months) Ever experience any problems No 09/21/24 10:13 with transfusion(s)? Specify any problems Hx of Preganancy in last 3 N/A 09/21/24 10:13 Months Nurse Filling Out Transfusion DSCHRIBER 09/21/24 10:13 & Questions: Date: 09/21/24 09/21/24 10:13 Time: 10:14 09/21/24 10:13 Patient unable to answer at this time (ie. confused, unrespo /Reproduction History /Reproductive History - corporate responsibility officer: /Reproductive Hx- corporate responsibility officer Hx Now No 09/21/24 10:13 Gestational Age (in weeks): EDC: Hx Hx Para Hx Section SAB No 09/21/24 10:13 Active Medications Active Medications: Current Medications Generic Name Dose Route Start Last Admin Trade Name Freq PRN Reason Stop Dose Admin Cefazolin Sodium 3 gm/ N/A 30 mls @ 600 mls/hr 09/22/24 15:00 IV 09/22/24 15:02 PREOP ONE Sodium Chloride 1,000 mls @ 15 mls/hr 09/22/24 05:55 09/22/24 06:02 IV 09/27/24 19:14 15 mls/hr .Q48H SCOTT Administration Protocol PFSH Medical History Loss of hearing Wears glasses Alcohol use Abrasion Arthritis Prostate disease Back pain Injury of head and neck Heartburn CPAP (continuous positive airway pressure) dependence Shortness of breath on exertion Non-smoker History of pain when walking History of edema History of stress test Kidney stones High cholesterol Home Medications ?Medication ?Instructions ?Recorded ?Last Taken ?Type atorvastatin 20 mg tablet 20 mg PO QHS 11/14/23 Unknow n History ketorolac 10 mg tablet 10 mg PO 4X/DAY PRN pain 5 d ays 11/14/23 Unknown Rx #20 tabs cephalexin 500 mg capsule 500 mg PO Q6 #28 CAPSULES Unknown Rx hydrocodone-acetaminophen 5-325mg 1 tab PO Q6H PRN PRN Pain 3 days 09/14/24 Unknown Rx 5mg-325mg #10 TABLETS niacin 1 tab PO DAILY 09/14/24 Unkn own History antiarthritic combination no.2 900 900 mg PO DAILY Unknown History mg tablet (glucosamine-chondroitin) multivitamin (Daily Multi-Vitamin 1 tab PO DAILY 09/21 Unknown History tablet) Allergy/AdvReac Type Severity Reaction Status Date / Time No Known Allergies Allergy Verified 09/22/24 05:42 Surgical History Hx of hand surgery Hx of tonsillectomy History of carpal tunnel surgery of right wrist Social History Smoking Status: Never smoker Review of Systems (Anesthesia) ROS Narrative System reviewed and no additional complaints, except as documented.
[2024-09-22] MEDS: Cefazolin 3 GM in Syringe 1 EACH IV (07:38)
--- NOTE | 2024-09-22 07:55 | DCINST_ITS ---
Discharge Instructions Diet Discharge Diet: No restrictions DC O2, CPAP, BIPAP needs Home O2 Discharge instructions: No Dressing / Incision Discharge Activity: Return to Normal Activity and May Not Drive (while taking narcotic pain medications.) Dressing / Incision Call your doctor if you observe: Fever of 101 or Higher Follow Up Care Please Follow Up With: Jean Galindo MD When: Call [phone] Test Results: Test results from this visit will be discussed in further detail at your follow- up appointment, if applicable. Discharge Plan Admission Primary Reason for Your Visit: Left obstructing kidney stones Attending Provider: Jean Galindo Primary Care Provider: Rhonda Hunter Instructions Print Language: Polish Discharge Orders/Prescriptions Prescriptions: New ciprofloxacin HCl [Cipro] 500 mg tablet 500 mg PO BID Qty: 10 0RF Continued atorvastatin 20 mg tablet 20 mg PO QHS ketorolac 10 mg tablet 10 mg PO 4X/DAY PRN (Reason: pain) 5 Days Qty: 20 0RF niacin 1 tab PO DAILY hydrocodone-acetaminophen 5-325 mg tablet 1 tab PO Q6H PRN PRN (Reason: Pain) 3 Days Qty: 10 0RF cephalexin 500 mg capsule 500 mg PO Q6 Qty: 28 0RF multivitamin [Daily Multi-Vitamin] Tablet 1 tab PO DAILY glucosamine-chondroitin 900 mg tablet 900 mg PO DAILY Referrals / Follow Up: Rhonda Hunter MD [Primary Care Provider] - Jean Galindo MD [Med Staff - Active Staff] - Disposition Disposition (needs filled in before D/C Order can be placed): Home, Self Care
--- NOTE | 2024-09-22 07:55 | OP.PCM_ITS ---
Operative Report (Standard) Operative Information Date of Procedure: 09/22/24 Pre-Operative Diagnosis: Left obstructing kidney stones Post-Operative Diagnosis: The same, infected looking urine and left renal pelvis Surgery/Procedure Performed: Cystoscopy, balloon dilation of the left ureter, left ureteroscopy, left stent placement senior fund accountant: No Type of Anesthesia: General RN Documented Start/Stop Times: Operation Date: 09/22/24 07:30 Case Time Into Pre-Op 09/22/24 05:44 Out of Pre-Op 09/22/24 07:23 Anesthesia Start 09/22/24 07:27 Into Room 09/22/24 07:27 Procedure Start 09/22/24 07:42 Procedure End 09/22/24 07:51 Procedure Start Time: 07:42 Procedure Stop Time: 07:51 Select all DRAINS/GRAFTS/IMPLANTS that apply: Drains Drain details: Left stent 6 x 26 Estimated Blood Loss: None Specimen collected: Yes Description of specimen(s) removed: Urine sent for culture Description of surgery: 68-year-old male presented my office with left flank pain CT scan was done demonstrated multiple stones the left kidney so plan to proceed with laser lithotripsy and stent placement today. He is taken back to the operating room after induction of anesthesia he was placed in dorsolithotomy position within the bladder with a 21 [place] rigid cystourethroscope the entire length urethra was free of strictures or tumors prostate was normal slightly obstructive inside the bladder no tumors or stones seen within the bladder normal bladder I then cannulated the left ureteral orifice balloon dilated the distal left ureter with a 12 [place] balloon dilator and then over the wire went in with a flexible ureteroscope was able to get up into the kidney and the renal pelvis and the left side immediately when it is inside it there was a lot of debris in the urine and the look infected there is 2 large stones the stones have been causing blockage of the left kidney and looks like he had a debris and infected purulent urine inside the left kidney therefore decision was made not to treat the stone since it would not be safe I then placed a stent to drain the infection he will go home with antibiotics and I will have my office call him to get him set up for outpatient laser surgery and lithotripsy of the stones at a separate setting once his infections cleared. Surgical Findings: Large obstructing stone seen in the left renal pelvis a lot of debris and infected urine in the left renal pelvis Complications Complications: No Admit VTE Documentation VTE Present on Admission: No VTE Mechan Device Prophylaxis: SCD's VTE Pharm Prophylaxis ordered?: No
--- NOTE | 2024-09-22 07:55 | PCM.HP.STD ---
HPI - General General Date of Service: 09/22/24 Chief Complaint: Left kidney stones HPI Narrative STAN LOREDO, is a 68 M who presents for laser lithotripsy of treatment of left kidney stones PFSH Medical History Loss of hearing Wears glasses Alcohol use Abrasion Arthritis Prostate disease Back pain Injury of head and neck Heartburn CPAP (continuous positive airway pressure) dependence Shortness of breath on exertion Non-smoker History of pain when walking History of edema History of stress test Kidney stones High cholesterol Home Medications ?Medication ?Instructions ?Recorded ?Last Taken ?Type atorvastatin 20 mg tablet 20 mg PO QHS 11/14/23 Unknown History ketorolac 10 mg tablet 10 mg PO 4X/DAY PRN pain 5 days 11/14/23 Unknown Rx #20 tabs cephalexin 500 mg capsule 500 mg PO Q6 #28 CAPSULES 09/14/24 Unknown Rx hydrocodone-acetaminophen 5-325mg 1 tab PO Q6H PRN PRN Pain 3 days 09/14/24 Unknown Rx 5mg-325mg #10 TABLETS niacin 1 tab PO DAILY 09/14/24 Unknown History antiarthritic combination no.2 900 900 mg PO DAILY 09/21/24 Unknown History mg tablet (glucosamine-chondroitin) multivitamin (Daily Multi-Vitamin 1 tab PO DAILY 09/21/24 Unknown History tablet) ciprofloxacin HCl 500 mg tablet 500 mg PO BID #10 tabs 09/22/24 Unknown Rx (Cipro) Allergy/AdvReac Type Severity Reaction Status Date / Time No Known Allergies Allergy Verified 09/22/24 05:42 Surgical History Hx of hand surgery Hx of tonsillectomy History of carpal tunnel surgery of right wrist Social History Smoking Status: Never smoker Vital Signs Vital Signs Vital Signs: 09/22/24 05:45 09/22/24 05:45 09/22/24 06:36 Temperature 98.4 F 98.4 F Temperature Source Temporal Pulse Rate 74 74 Respiratory Rate 16 16 Respiratory Pattern Normal Blood Pressure 183/86 H 183/86 H Blood Pressure Mean 118 Blood Pressure Source Monitor Blood Pressure Position Sitting Blood Pressure Location Left Forearm Pulse Ox 98 98 Oxygen Delivery Method Room Air Room Air Weight Weight: 123 kg Body Mass Index (BMI) 41.2
--- NOTE | 2024-09-22 08:05 | PCM.POST.ANE ---
Anesthesia: Postop Eval I Current Vital Signs Temperature: 98.6 F Pulse Rate: 77 Blood Pressure: 157/87 Respiratory Rate: 16 Pulse Ox: 96 Oxygen Delivery Method: Room Air Assessment Airway patent: Yes Spontaneous unlabored respirations: Yes Mental status: Awake nausea: No Vomiting: No Anesthesia Complication: No Fluid Hydration Crystalloid volume administer (ml): 500 Total IV fluid infused: 500 Progress Note Anesthesia document: Postop Eval 1 completed: Yes
[2024-09-22] MEDS: Ketorolac 15 MG/ML Vial IV (08:16)
--- NOTE | 2024-09-22 09:12 | POSTOPAN2_ITS ---
Anesthesia Postop Eval I Sum Postop Eval Completion status Anesthesia document: Postop Eval 1 completed: Yes Anesthesia Postop Eval I Summary Anesthesia Postop Eval I Summary: Anesthesia Postop Eval I: Assessment Summary Airway patent Yes 09/22/24 08:06 PART [email or web address] Spontaneous unlabored Yes 09/22/24 08:06 PART [email or web address] respirations Mental status Awake 09/22/24 08:06 PART [email or web address] nausea No 09/22/24 08:06 PART [email or web address] Vomiting No 09/22/24 08:06 PART [email or web address] Anesthesia Postop Eval I: Fluid Summary Crystalloid volume administer 500 09/22/24 08:06 PART [email or web address] (ml) Colloids volume administered ( ml) Blood Product volume administered (ml) Total IV fluid infused 500 09/22/24 08:06 PART [email or web address] Anesthesia Postop Eval I: Summary Notes Anesthesia Complication No 09/22/24 08:06 PART [email or web address] Anesthesia Complication Comment: Post-operative progress note Anesthesia: Postop Eval II Evaluation Mental status: Awake and Calm Pain Level: 1 nausea: No Vomiting: No Complications Anesthesia Complication: No
--- NOTE | 2024-09-22 09:12 | PCM.POSTANE2 ---
Anesthesia Postop Eval I Sum Postop Eval Completion status Anesthesia document: Postop Eval 1 completed: Yes Anesthesia Postop Eval I Summary Anesthesia Postop Eval I Summary: Anesthesia Postop Eval I: Assessment Summary Airway patent Yes 09/22/24 08:06 ROAD MACHINE OPERATOR.[email or web address] Spontaneous unlabored Yes 09/22/24 08:[address] MACHINE OPERATOR.NFOR respirations Mental status Awake 09/22/24 08:06 RO[address] MACHINE OPERATOR.NFOR nausea No 09/22/24 08:06 [address] MACHINE OPERATOR.NFOR Vomiting No 09/22/24 08:06 [address] MACHINE OPERATOR.NFOR Anesthesia Postop Eval I: Fluid Summary Crystalloid volume administer 500 09/22/24 08:[address] MACHINE OPERATOR.NFOR (ml) Colloids volume administered ( ml) Blood Product volume administered (ml) Total IV fluid infused 500 09/22/24 08:[address] MACHINE OPERATOR.NFOR Anesthesia Postop Eval I: Summary Notes Anesthesia Complication No 09/22/24 08:[address] MACHINE OPERATOR.NFOR Anesthesia Complication Comment: Post-operative progress note Anesthesia: Postop Eval II Evaluation Mental status: Awake and Calm Pain Level: 1 nausea: No Vomiting: No Complications Anesthesia Complication: No
== END 2024-09-22 09:12 | disposition home or self-care (01) ==
LOC: SDC 05:16 → AC 05:17
PROVIDERS: PCP Family Medicine; Referring Provider Urology; Visit Provider Urology
PROC: 0TJ98ZZ Inspection of Ureter, Via Natural or Artificial Opening Endoscopic (ICD-10-PCS; CPT 52352; principal; 2024-09-22 07:20)
DX: N13.6 Pyonephrosis (principal); E78.00 Pure hypercholesterolemia, unspecified; Z79.899 Other long term (current) drug therapy
CPT/HCPCS: 52332; 00910; 87086; C2617; J2405

== ENCOUNTER 2024-10-06 09:47 | Day surgery (SDC) | payer MEDICARE, SELFPAY ==
[2024-10-06] VITALS (10 sets, daily range): BP systolic 142–173; BP diastolic 62–92; PULSE 71–78; RESP 16–20; TEMP 36.6–37; O2SAT 92–97; BMI 41.2
[2024-10-06] MEDS: 0.9% Normal Saline (1000mL) 1,000 ML 15 ML IV (10:08)
--- NOTE | 2024-10-06 10:56 | PCM.PRE.AN2 ---
ASA Classification* ASA Classification ASA Classification: 3 Assessment & Plan Anesthesia* Anesthesia Assessment Anesthesia Assessment: Discussed sedation and/or anesthesia options, risks, benefits, and alternatives with patient/parents/legal guardian/POA. Questions invited. The patient/parents/legal guardian/POA seems to understand and agrees to proceed with anesthesia plan. Reviewed the physical assessment, medical history, allergy history and patient home medications list prior to surgery/procedure/anesthetic and documented any changes. Performed airway and anesthesia risk assessments. Anesthesia Type Anesthesia Type: General Anesthesia Focused Assessment* Temperature: 98.6 F Pulse Rate: 76 Blood Pressure: 156/75 Respiratory Rate: 16 Pulse Ox: 97 Airway Assessment Mouth opens: >3 cm Mallampati Score: II Focused Labs Anesthesia Preop lab: CBC WBC 10.0 K/mm3 (4.4-11.0) 09/14/24 14:09/14/24 RBC 5.37 M/mm3 (4.6-6.2) 09/14/24 14:09/14/24 Hgb 16.2 g/dL (13.0-16.5) 09/14/24 14:09/14/24 Hct 47.4 % (40-54) 09/14/24 14:09/14/24 Plt Count 222 K/mm3 (150-450) 09/14/24 14:09/14/24 CHEMISTRY Potassium 4.4 mmol/L (3.5-5.1) 09/14/24 14:09/14/24 Sodium 138 mmol/L (136-145) 09/14/24 14:09/14/24 BUN 15 mg/dL (7-18) 09/14/24 14:09/14/24 Creatinine 1.29 mg/dL (0.70-1.30) 09/14/24 14:09/14/24 Glucose 131 mg/dL (74-106) H 09/14/24 14:09/14/24 COAG Pre-Assessment Diagnosis/Proposed Procedure Planned Operative Procedure(s): LEFT CYSTO URETEROSCOPY LASER STENT Anesthesia History 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 When Was Last Pacemaker Check QUESTION #4 FULL TEXT: You/Your Family Experience fever (hyperthermia) with Anesthesia Last Oral Intake Last Oral intake: Last Oral Intake NPO since 02:30 10/06/24 10:03 Meds taken in AM with sips of No 10/06/24 10:03 water? Meds patient instructed to take am of surgery PONV PONV - bake room worker: PONV - bake room worker Female No 09/29/24 11:06 HX of Motion Sickness No 09/29/24 11:06 HX of N/V After Surgery No 09/29/24 11:06 Non-Smoker Yes 09/29/24 11:06 Duration of Surgery greater No 09/29/24 11:06 than 60 minutes Number of Risk Factors 1 09/29/24 11:06 PONV Score Low Risk 09/29/24 11:06 Height & Weight Height & Weight: Anesthesia: Height & Weight Height 5 ft 8 in 10/06/24 10:03 Weight: 123 kg 10/06/24 10:03 Body Mass Index (BMI) 41.2 10/06/24 10:03 Respiratory Assessment Respiratory Assessment - bake room worker: Respiratory Tract Infection Hx - bake room worker Hx Respiratory Tract Infection No 09/29/24 11:06 STOP Sleep Apnea STOP Sleep Apnea - bake room worker: STOP Sleep Apnea - bake room worker Hx Hypertension No 09/29/24 11:06 Hx Sleep Apnea Yes 09/29/24 11:06 CPAP Yes 09/29/24 11:06 BIPAP No 09/29/24 11:06 Do you snore loudly (louder than talking or can be heard Do you often feel tired/ fatigued/ sleepy during daytime? Has anyone observed you stop breathing during sleep? STOP Results Positive 09/29/24 11:06 QUESTION #5 FULL TEXT : Do you snore loudly (louder than talking or can be heard through closed doors)? 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 Specify any problems Hx of Preganancy in last 3 N/A 09/29/24 11:06 Months Nurse Filling Out Transfusion [email or web address] 09/29/24 11:06 & Questions: Date: 09/29/24 09/29/24 11:06 Time: 11:06 09/29/24 11:06 Patient unable to answer at this time (ie. confused, unrespo /Reproduction History /Reproductive History - bake room worker: /Reproductive Hx- bake room worker Hx Now Gestational Age (in weeks): EDC: Hx Hx Para Hx Section SAB No 09/29/24 11:06 Active Medications Active Medications: Current Medications Generic Name Dose Route Start Last Admin Trade Name Freq PRN Reason Stop Dose Admin Sodium Chloride 1,000 mls @ 15 mls/hr 10/06/24 09:55 10/06/24 10:08 IV 10/11/24 23:14 15 mls/hr .Q48H SCOTT Administration Protocol [facility] Medical History Loss of hearing Wears glasses Alcohol use Abrasion Arthritis Prostate disease Back pain Injury of head and neck Heartburn CPAP (continuous positive airway pressure) dependence Shortness of breath on exertion Non-smoker History of pain when walking History of edema History of stress test High cholesterol Home Medications ?Medication ?Instructions ?Recorded ?Last Taken ?Type atorvastatin 20 mg tablet 20 mg PO QHS 11/14/23 10/01/24 History hydrocodone-acetaminophen 5-325mg 1 tab PO Q6H PRN PRN Pain 3 days 09/14/24 Unknown Rx 5mg-325mg #10 TABLETS niacin 1 tab PO DAILY 09/14/24 10/01/24 History antiarthritic combination no.2 900 900 mg PO DAILY 09/21/24 10/04/24 History mg tablet (glucosamine-chondroitin) multivitamin (Daily Multi-Vitamin 1 tab PO DAILY 09/21/24 10/04/24 History tablet) Allergy/AdvReac Type Severity Reaction Status Date / Time No Known Allergies Allergy Verified 10/06/24 10:01 Surgical History Hx of cystoscopy Hx of hand surgery Hx of tonsillectomy History of carpal tunnel surgery of right wrist Social History Smoking Status: Never smoker Review of Systems (Anesthesia) ROS Narrative System reviewed and no additional complaints, except as documented.
--- NOTE | 2024-10-06 12:35 | PCM.HP.STD ---
HPI - General General Date of Service: 10/06/24 Chief Complaint: Left kidney stones HPI Narrative STAN LOREDO, is a 68 M who presents to laser stones in the left kidney with laser lithotripsy and stent placement. [facility] Medical History Loss of hearing Wears glasses Alcohol use Abrasion Arthritis Prostate disease Back pain Injury of head and neck Heartburn CPAP (continuous positive airway pressure) dependence Shortness of breath on exertion Non-smoker History of pain when walking History of edema History of stress test High cholesterol Home Medications ?Medication ?Instructions ?Recorded ?Last Taken ?Type atorvastatin 20 mg tablet 20 mg PO QHS 11/14/23 10/01/24 History hydrocodone-acetaminophen 5-325mg 1 tab PO Q6H PRN PRN Pain 3 days 09/14/24 Unknown Rx 5mg-325mg #10 TABLETS niacin 1 tab PO DAILY 09/14/24 10/01/24 History antiarthritic combination no.2 900 900 mg PO DAILY 09/21/24 10/04/24 History mg tablet (glucosamine-chondroitin) multivitamin (Daily Multi-Vitamin 1 tab PO DAILY 09/21/24 10/04/24 History tablet) Allergy/AdvReac Type Severity Reaction Status Date / Time No Known Allergies Allergy Verified 10/06/24 10:01 Surgical History Hx of cystoscopy Hx of hand surgery Hx of tonsillectomy History of carpal tunnel surgery of right wrist Social History Smoking Status: Never smoker Vital Signs Vital Signs Vital Signs: 10/06/24 10:03 10/06/24 10:03 10/06/24 10:56 Temperature 98.6 F 98.6 F Temperature Source Temporal Pulse Rate 76 76 Respiratory Rate 16 16 Respiratory Pattern Normal Blood Pressure 156/75 H 156/75 H Blood Pressure Mean 102 Blood Pressure Source Monitor Blood Pressure Position Semi-Fowlers Blood Pressure Location Right Arm Pulse Ox 97 97 Oxygen Delivery Method Room Air Weight Weight: 123 kg Body Mass Index (BMI) 41.2
--- NOTE | 2024-10-06 13:08 | EX.PCM.DISCH ---
Discharge Instructions Procedure Urology Diet Discharge Diet: No restrictions Activity Discharge Activity: Return to Normal Activity and May Not Drive (while taking narcotic pain medications.) Dressing / Incision Call your doctor if you observe: Fever of 101 or Higher Follow Up Care Please Follow Up With: Jean Galindo MD When: Call [phone] for an appointment, NEXT FRIDAY TO REMOVE STENT Test Results: Test results from this visit will be discussed in further detail at your follow-up appointment, if applicable. Discharge Plan Admission Primary Reason for Your Visit: LASER STONE STENT Attending Provider: Jean Galindo Primary Care Provider: Rhonda Hunter Instructions Print Language: Hungarian Discharge Orders/Prescriptions Prescriptions: Continued atorvastatin 20 mg tablet 20 mg PO QHS niacin 1 tab PO DAILY hydrocodone-acetaminophen 5-325 mg tablet 1 tab PO Q6H PRN PRN (Reason: Pain) 3 Days Qty: 10 0RF multivitamin [Daily Multi-Vitamin] Tablet 1 tab PO DAILY glucosamine-chondroitin 900 mg tablet 900 mg PO DAILY Referrals / Follow Up: Rhonda Hunter MD [Primary Care Provider] - Jean Galindo MD [Med Staff - Active Staff] - Disposition Disposition (needs filled in before D/C Order can be placed): Home, Self Care
--- NOTE | 2024-10-06 13:09 | OP.PCM_ITS ---
Operative Report (Standard) Operative Information Date of Procedure: 10/06/24 Pre-Operative Diagnosis: Left kidney stones Post-Operative Diagnosis: Same Surgery/Procedure Performed: Cystoscopy left ureteroscopy laser lithotripsy of stones and stent placement basket hand braider: No Type of Anesthesia: General RN Documented Start/Stop Times: Operation Date: 10/06/24 11:45 Case Time Into Pre-Op 10/06/24 09:51 Procedure Start Time: 13:09 Procedure Stop Time: 14:04 Select all DRAINS/GRAFTS/IMPLANTS that apply: Drains Drain details: 6 X 26 STENT Estimated Blood Loss: 0 Specimen collected: No Description of surgery: This is a patient who presents to the hospital for treatment for an obstructing ureter calculi. I discussed with the patient how the surgery would be performed and we reviewed the risks and benefits of the surgery. The risk and benefits include the risk of failure to remove the stone completely and that the patient may need multiple procedures. We discussed the risk of an infection, the risk of bleeding. We discussed the very rare risk of serious complicated injury to the ureter. The patient understands that if the stone is not able to be removed safely that we may abort the procedure and place a stent. After full discussion and all questions address with the patient the consent form was signed the side was marked appropriately and the patient was taken back to the operating room for the procedure. The patient was taken back to the operating room. After induction of anesthesia by the anesthesiology team the patient was placed in dorsolithotomy position. The genitals were prepped and draped in usual sterile fashion. I went into the bladder with a 21 Luxembourgish rigid cystourethroscope through the urethra. Upon entering the bladder I inspected the trigone the left and right ureteral orifice and the bladder itself. I then cannulated the left ureteral orifice and advanced a 0.038 Glidewire up into the kidney. Then over the Glidewire I advanced a 5 Fr Ureteral catheter and performed a retrograde pyelogram with about 10cc of contrast, to delineate the anatomy and identify the stone location. Then a ureteral balloon dilator was advanced over the wire and the distal ureter was balloon dilated with a 12 Fr x 5cm balloon dilator. After 3 minutes of dilating the ureter the balloon was backloaded off the 0.038 glidewire over the 0.038 guidewire I went in with the flexible 7.5fr ureteroscope. I was able to go inside with the 7.5Fr utereroscope and I pulled out the guidewire and then through the ureteroscope I engage the stone with laser lithotripsy using a 270miron laser fiber with energy setting of 6 Hertz and 0.6 J until the stone was lasered into tiny little pieces that should pass on their own. A retrograde pyelogram was performed with 10cc of contrast and no extravasation of contrast or perforation was identified in the ureter there was some mild irritation of the ureter where the stone was located. I then backed out of the ureter left the wire in place and then over the 0.038 guidewire I placed a double coiled pigtail ureteral stent. The ureteral stent was advanced over the 0.038 guidewire under direct fluoroscopic guidance and direct cystoscopic visual guidance, once the stent was in good position I pulled the wire and the stent coiled in the kidney and bladder in good position. I then drained the patient's bladder and the cystoscope was removed and the patient was taken back to the recovery room in good position. The patient was given discharge instructions to call the office for instructions on when to come to the office to have the stent removed. Surgical Findings: STONE IN LEFT KIDNEY LASER COMPLETELY Complications Complications: No Admit VTE Documentation VTE Present on Admission: No VTE Mechan Device Prophylaxis: SCD's VTE Pharm Prophylaxis ordered?: No
[2024-10-06] MEDS: Cefazolin 2 GM in Syringe IV (13:20)
--- NOTE | 2024-10-06 14:13 | PCM.POST.ANE ---
Anesthesia: Postop Eval I Current Vital Signs Temperature: 98 F Pulse Rate: 78 Blood Pressure: 159/74 Respiratory Rate: 16 Pulse Ox: 94 Oxygen Delivery Method: Venturi Mask Oxygen Flow Rate (L/min): 8 Assessment Airway patent: Yes Spontaneous unlabored respirations: Yes Mental status: Awake and Calm nausea: No Vomiting: No Anesthesia Complication: No Fluid Hydration Crystalloid volume administer (ml): 800 Total IV fluid infused: 800 Progress Note Anesthesia document: Postop Eval 1 completed: Yes
[2024-10-06] MEDS: Ketorolac 15 MG/ML Vial IV (14:20)
--- NOTE | 2024-10-06 14:43 | POSTOPAN2_ITS ---
Anesthesia Postop Eval I Sum Postop Eval Completion status Anesthesia document: Postop Eval 1 completed: Yes Anesthesia Postop Eval I Summary Anesthesia Postop Eval I Summary: Anesthesia Postop Eval I: Assessment Summary Airway patent Yes 10/06/24 14:14 [email or web address] Spontaneous unlabored Yes 10/06/24 14:14 TELECOMMUNICATIONS [email or web address].[email or web address] respirations Mental status Awake,Calm 10/06/24 14:14 TELECOMMUNICATIONS [email or web address].[email or web address] nausea No 10/06/24 14:14 TELECOMMUNICATIONS SPECIALIST.[email or web address] Vomiting No 10/06/24 14:14 TELECOMMUNICATIONS [email or web address].[email or web address] Anesthesia Postop Eval I: Fluid Summary Crystalloid volume administer 800 10/06/24 14:14 TELECOMMUNICATIONS [email or web address].[email or web address] (ml) Colloids volume administered ( ml) Blood Product volume administered (ml) Total IV fluid infused 800 10/06/24 14:14 TELECOMMUNICATIONS [email or web address].[email or web address] Anesthesia Postop Eval I: Summary Notes Anesthesia Complication No 10/06/24 14:14 TELECOMMUNICATIONS [email or web address].[email or web address] Anesthesia Complication Comment: Post-operative progress note Anesthesia: Postop Eval II Evaluation Mental status: Awake Pain Level: 0 nausea: No Vomiting: No
--- NOTE | 2024-10-06 14:43 | PCM.POSTANE2 ---
Anesthesia Postop Eval I Sum Postop Eval Completion status Anesthesia document: Postop Eval 1 completed: Yes Anesthesia Postop Eval I Summary Anesthesia Postop Eval I Summary: Anesthesia Postop Eval I: Assessment Summary Airway patent Yes 10/06/24 14:14 BLOCKING MACHINE OPERATOR [email or web address] Spontaneous unlabored Yes 10/06/24 14:14 BLOCKING MACHINE OPERATOR [email or web address] respirations Mental status Awake,Calm 10/06/24 14:14 BLOCKING MACHINE OPERATOR [email or web address] nausea No 10/06/24 14:14 BLOCKING MACHINE OPERATOR [email or web address] Vomiting No 10/06/24 14:14 BLOCKING MACHINE OPERATOR [email or web address] Anesthesia Postop Eval I: Fluid Summary Crystalloid volume administer 800 10/06/24 14:14 BLOCKING MACHINE OPERATOR [email or web address] (ml) Colloids volume administered ( ml) Blood Product volume administered (ml) Total IV fluid infused 800 10/06/24 14:14 BLOCKING MACHINE OPERATOR [email or web address] Anesthesia Postop Eval I: Summary Notes Anesthesia Complication No 10/06/24 14:14 BLOCKING MACHINE OPERATOR [email or web address] Anesthesia Complication Comment: Post-operative progress note Anesthesia: Postop Eval II Evaluation Mental status: Awake Pain Level: 0 nausea: No Vomiting: No
== END 2024-10-06 15:57 | disposition home or self-care (01) ==
LOC: SDC 09:51 → AC 09:51
PROVIDERS: PCP Family Medicine; Referring Provider Urology; Visit Provider Urology
PROC: 0TJ98ZZ Inspection of Ureter, Via Natural or Artificial Opening Endoscopic (ICD-10-PCS; CPT 52352; principal; 2024-10-06 11:35)
DX: N20.1 Calculus of ureter (principal); E78.00 Pure hypercholesterolemia, unspecified; Z79.899 Other long term (current) drug therapy
CPT/HCPCS: 52356; C1769; C2617; J2405

== ENCOUNTER 2024-10-06 17:19 | Emergency (ER) | payer MEDICARE, SELFPAY ==
[2024-10-06 17:20] VITALS: BP 147/79; PULSE 88; RESP 16; TEMP 36.4; O2SAT 95; BMI 41.3
--- NOTE | 2024-10-06 17:34 | EX.ED.DYSGE1 ---
HPI History of Present Illness Chief Complaint: Complaint [facility] Medical History Loss of hearing Wears glasses Alcohol use Abrasion Arthritis Prostate disease Back pain Injury of head and neck Heartburn CPAP (continuous positive airway pressure) dependence Shortness of breath on exertion Non-smoker History of pain when walking History of edema History of stress test High cholesterol Home Medications ?Medication ?Instructions ?Recorded ?Last Taken ?Type atorvastatin 20 mg tablet 20 mg PO QHS 11/14/23 10/01/24 History hydrocodone-acetaminophen 5-325mg 1 tab PO Q6H PRN PRN Pain 3 days 09/14/24 Unknown Rx 5mg-325mg #10 TABLETS niacin 1 tab PO DAILY 09/14/24 10/01/24 History antiarthritic combination no.2 900 900 mg PO DAILY 09/21/24 10/04/24 History mg tablet (glucosamine-chondroitin) multivitamin (Daily Multi-Vitamin 1 tab PO DAILY 09/21/24 10/04/24 History tablet) cephalexin 500 mg capsule 500 mg PO TID 3 days #9 caps 10/06/24 Unknown Rx Allergy/AdvReac Type Severity Reaction Status Date / Time No Known Allergies Allergy Verified 10/06/24 17:22 Surgical History Hx of cystoscopy Hx of hand surgery Hx of tonsillectomy History of carpal tunnel surgery of right wrist Social History Smoking Status: Never smoker EXAM Physical Exam Const Vital Signs: 10/06/24 17:20 10/06/24 17:56 Temperature 97.6 F L 98.1 F Temperature Source Temporal Pulse Rate 88 72 Respiratory Rate 16 15 Blood Pressure 147/79 H 138/74 H Blood Pressure Mean 101 95 Pulse Ox 95 99 Oxygen Delivery Method Room Air MDM MDM MDM Narrative Medical decision making narrative: HISTORY OF PRESENT ILLNESS: 68-year-old male presents with concern for urinary retention. Sent in by urology for catheter. REVIEW OF SYSTEMS: Pertinent positives: Urinary retention Pertinent negatives: Fever PHYSICAL EXAM: Nursing triage notes reviewed, Vital signs reviewed Constitutional: please see mdm Abdomen: Soft, there is no tenderness, rigidity, rebound or guarding, no obvious peritoneal signs, no palpable pulsatile abdominal masses, no auscultated abdominal bruit : No CVAT MEDICAL DECISION MAKING: Chief Complaint: Urinary retention Factors affecting care: none Social determinants of health: none History obtained from others: none Consults: none [facility] Narrative: Patient was initially hemodynamically stable, afebrile and nontoxic-appearing. Exam without concerning abdominal findings. The patient was seen in triage room secondary to poor department dynamics including high volume and high acuity. I considered the following differential diagnosis: Urinary retention, UTI Obtained urine and send urine for culture. Will discharge on prophylactic Keflex. After Ortiz is placed patient noted improvement in symptoms. The patient and/or family, caregivers express understanding. The patient and/or family, caregivers agrees with the plan. Shared decision making: I will have a discussion with the patient and or visitors regarding risk/benefits of further testing or admission. They will be made aware of of the risk/benefits inherent in this decision they will be given the opportunity to voice understanding. Total critical care time today provided was at least 0 minutes. This excludes separately billable procedures. Critical care time (if documented) is secondary to the patient having high probability of clinically significant/life threatening deterioration in the patient's condition which required my urgent intervention. Impression: 1. Urinary retention Dispo: Discharge This note was generated with [employer] dictation software. It may contain incorrect words, spelling, and punctuation that were not noted in review of the chart prior to signing. Lab Data Labs: Laboratory Results - last 24 hr 10/06/24 17:37 Urine Color Yellow Urine Clarity Sl. Cloudy Urine pH 5.0 Ur Specific [place] 1.025 Urine Protein 100 H Urine Glucose (UA) Normal Urine Ketones Negative Urine Occult Blood 250 H Urine Nitrite Negative Urine Bilirubin Negative Urine Urobilinogen Normal Ur Leukocyte Esterase 100 H Urine RBC > 100 SEEN Urine WBC 10-25 SEEN Ur Squamous Epith Cells 0-5 SEEN Amorphous Sediment 2+ URATE Urine Bacteria 1+ Urine Mucus 0 SEEN Discharge Plan Triage Chief Complaint: Complaint ED Provider: Colt Barth Dx/Rx/DC Orders Instructions: ED Urinary Retention, Male Prescriptions: New cephalexin 500 mg capsule 500 mg PO TID 3 Days Qty: 9 0RF No Action atorvastatin 20 mg tablet 20 mg PO QHS niacin 1 tab PO DAILY hydrocodone-acetaminophen 5-325 mg tablet 1 tab PO Q6H PRN PRN (Reason: Pain) 3 Days Qty: 10 0RF multivitamin [Daily Multi-Vitamin] Tablet 1 tab PO DAILY glucosamine-chondroitin 900 mg tablet 900 mg PO DAILY Primary Care Provider: Rhonda Hunter Referrals: Jean Galindo MD [Med Staff - Active Staff] - Activity Restrictions/Additional Instructions: Thank you for trusting us with your care today! You are likely suffering from urinary retention. Please keep your catheter intake and follow-up with urology Please take Tylenol (2 pills, 650 mg), ibuprofen (2 pills, 400 mg) every 6 hours as needed for pain and fever control. Please return to the emergency department if your symptoms change or worsen. Please follow with your primary care physician for further outpatient evaluation and management. Print Language: Persian Disposition Disposition: Home, Self Care Discharge Date/Time: 10/06/24 17:57
[2024-10-06 17:53] LABS: Mucous, Urine 0 SEEN /hpf (<or=2+)
[2024-10-06 17:56] VITALS: BP 138/74; PULSE 72; RESP 15; TEMP 36.7; O2SAT 99
[2024-10-06 17:57] LABS: Color, Urine Yellow (Yellow); Glucose, Dipstick Normal (Normal); Ketone-Dipstick Negative (Negative); Leukocyte Esterase-Dipstick 100 /ul (Negative); Nitrite-Dipstick Negative (Negative); Occult Blood-Urine 250 /ul (Negative); Protein-Dipstick 100 mg/dl (Negative); Specific Gravity, Urine 1.025 (1.002-1.030); Urine Bilirubin Dipstick Negative (Negative); Urine Clarity Sl. Cloudy (Clear); Urine Urobilinogen Normal (Normal)
[2024-10-06 18:21] LABS: Bacteria 1+ /hpf (None Seen); Red Blood Cells-Urine > 100 SEEN /hpf (0-5); Squamous Epithelial Cells - UA 0-5 SEEN /hpf (0-5); White Blood Cells 10-25 SEEN /hpf (0-5)
[2024-10-06 18:22] LABS: Amorphous Sediment 2+ URATE
== END 2024-10-06 17:57 | disposition home or self-care (01) ==
PROVIDERS: Emergency Provider Emergency Medicine; PCP Family Medicine; Visit Provider Emergency Medicine
DX: R33.9 Retention of urine, unspecified (principal); E78.00 Pure hypercholesterolemia, unspecified; Z79.899 Other long term (current) drug therapy
CPT/HCPCS: 51702; 81001; 87086; 99283

== ENCOUNTER → 2025-02-07 | Outpatient (CLI) | payer MEDICARE, SELFPAY ==
[2025-02-07 10:59] LABS: AST(SGOT) 21 U/L (<=37); Alanine Aminotransfer ALT/SGPT 35 U/L (<=46); Albumin, Serum 4.2 g/dL (3.4-4.8); Alkaline Phosphatase 76 U/L (40-129); Anion Gap 11 (5-15); BUN 15 mg/dL (4-19); BUN/Creat Ratio 13.1 RATIO (10-20); Calcium,Total 8.9 mg/dL (7.6-11.0); Carbon Dioxide 23.6 mmol/L (21.0-32.0); Chloride 108 mmol/L (98-108); Cholesterol 151 mg/dL (<=200); Globulin 2.7 g/dL (2.2-4.2); Glucose 119 mg/dL (70-99); Low Density Lipoprotein Calc. 53 mg/dL; PSA,Total - Annual Screen 0.96 ng/mL (0.02-4.00); Potassium 4.1 mmol/L (3.3-5.1); Triglycerides 363 mg/dL; Very Low Density Lipoprotein 73 mg/dL (5-40); cholesterol:hdl ratio screen 6.02
== END | disposition home or self-care (01) ==
LOC: MFPLAB 08:00
PROVIDERS: PCP Family Medicine; Referring Provider Family Medicine; Visit Provider Family Medicine
DX: Z12.5 Encounter for screening for malignant neoplasm of prostate (principal); E66.01 Morbid (severe) obesity due to excess calories; E78.5 Hyperlipidemia, unspecified
CPT/HCPCS: 36415; 80053; 80061; 84153; 84443; G0103

== ENCOUNTER → 2025-03-14 | Outpatient (CLI) | payer MEDICARE, SELFPAY ==
--- NOTE | 2025-03-14 13:49 | ST.MBS ---
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 Pt had a choking episode consuming gabriel ~14 years ago requiring back slaps from his . He now has ~2-3 episodes of swallowing difficulty this past year, including inhaling while consuming peanuts resulting in bad coughing/choking spell. Pt reports he has not needed the Heimlich. He reports hx of asthma. He also reports GERD symptoms, especially w/ spicy foods/HB. Pt admits to eating/drinking quickly. Medical History: PMH: Loss of hearing, Wears glasses, Alcohol use, Abrasion, Arthritis, Prostate disease, Back pain, Injury of head and neck, Heartburn, CPAP (continuous positive airway pressure) dependence, Shortness of breath on exertion, Non-smoker, History of pain when walking, History of edema, History of stress test, High cholesterol. Current Diet Ordered: Regular textures / Thin liquids Dentition: WNL and Natural Teeth Mental Status: WNL Respiratory Status: Oxygenating on Room Air Penetration-Aspiration Scale Penetration-Aspiration Scale: OBJECTIVE ASSESSMENT OF SWALLOW FUNCTION (QUANTITATIVE ? PER TRIAL): PENETRATION / ASPIRATION SCALE (WITT): 1 = does not enter airway 2 = enters airway/above vocal folds/ejected 3 = enters airway/above vocal folds/not ejected 4 = enters airway/contacts vocal folds/ejected 5 = enters airway/contacts vocal folds/not ejected 6 = enters airway/below vocal folds/ejected 7 = enters airway/below vocal folds/not ejected despite effort 8 = enters airway/below vocal folds/no effort VIDEOFLOROSCOPIC SCALE SCORE (WITT): Grade I = aspiration of material that has penetrated into the laryngeal vestibule, intact cough reflex Grade II = aspiration < 10 % of the bolus, intact cough reflex Grade III = aspiration of < 10 % of the bolus, reduced cough reflex or aspiration of > 10 % of the bolus, intact cough reflex Grade IV = aspiration of > 10 % of the bolus, reduced cough reflex Penetration-Aspiration Scale Score Thin Liquid via teaspoon: Result: 1= does not enter airway Thin Liquid via teaspoon Trial 2: Result: 1= does not enter airway Thin Liquid via sequential sips: cup: Result: 1= does not enter airway Comment: Esophageal screen - Retention in the lower esophagus w/ retrograde flow, eventual clearance through the LES. Pudding via teaspoon: Result: 1= does not enter airway Comment: Esophageal screen - Retention throughout the middle and lower esophagus. 1/2 Cookie: Result: 1= does not enter airway Comment: Esophageal screen - Minimal retention in the lower esophagus. Thin Liquid via sequential sips:straw: Result: 1= does not enter airway Comment: Esophageal screen - Complete clearance. Oral Phase Labial Seal: No Labial Escape Tongue Control During Bolus Hold: Posterior escape of greater than half of bolus Bolus Preparation/Mastication: Timely and efficient chewing and mashing Bolus Transport/Lingual Motion: Delayed initiation of tongue motion Oral Residue: Trace residue lining oral structures Pharyngeal Phase Initiation of Pharyngeal Swallow: Bolus head in pyriforms Soft Palate Elevation: Trace column of contrast/air between soft palate and pharyngeal wall Laryngeal Elevation: Comp. Superior move thyroid cart w/comp. apprx arytenoid cart-epig pet Anterior Hyoid Excursion: Complete anterior movement Epiglottic Movement: Complete inversion Laryngeal Vestibule Closure at Height of Swallow: Complete; no air/contrast in laryngeal vestibule Pharyngeal Stripping Wave: Present - complete Pharyngoesophageal Segment Opening: Parital distension and partial duration; parital obstruction of flow Tongue Base Retraction: Trace column of contrast between tongue base & post. pharyngeal wall Pharyngeal Residue: Trace residue within or on pharyngeal structures Esophageal Phase Esophageal Clearance: Esophageal retention w/ retrograde flow below pharyngoesophageal seg. Diagnosis/Impression Diagnosis: Oropharyngeal swallow function grossly WNL MBS Impressions: Oropharyngeal swallow function appears grossly WNL; however, [employer] educated that eating/drinking too fast can increase the patient's risk for aspiration and choking. The patient verbalized understanding. The esophageal phase is primarily marked by... -Retention of liquids in the lower esophagus w/ retrograde flow and then eventual clearance through the UES. -Mild retention of pudding in the middle and lower esophagus. Minimal retention of cookie in the lower esophagus. Liquid wash fully cleared the esophagus. Recommendations Diet: Regular Textures and Thin Liquids Compensatory Strategies: Small Bites, Small Sips, Slow Rate, Alternate bites/solids and sips/liquids, Sitting upright and Remain sitting upright for 30 minutes after PO intake Recommend Repeat Modified Barium Swallow: No Need for Skilled Speech Therapy Services: No Recommended Referrals: GI Consult (Esophageal retention of barium and pt reports s/s of GERD. If recommended by GI or physician, pt is safe for esophagram.) Education Completed: 1. Described result of evaluation. Status Active ST Patient: Active Contact Information [facility] Speech Therapy:: Joseline Shipman M.A. CCC-[employer]? Speech-Language Pathologist?? [facility] [address] [place] [address]? [email or web address]?? [phone]
--- NOTE | 2025-03-14 13:49 | ST.MBS ---
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 Pt had a choking episode consuming gabriel ~14 years ago requiring back slaps from his . He now has ~2-3 episodes of swallowing difficulty this past year, including inhaling while consuming peanuts resulting in bad coughing/choking spell. Pt reports he has not needed the Heimlich. He reports hx of asthma. He also reports GERD symptoms, especially w/ spicy foods/HB. Pt admits to eating/drinking quickly. Medical History: PMH: Loss of hearing, Wears glasses, Alcohol use, Abrasion, Arthritis, Prostate disease, Back pain, Injury of head and neck, Heartburn, CPAP (continuous positive airway pressure) dependence, Shortness of breath on exertion, Non-smoker, History of pain when walking, History of edema, History of stress test, High cholesterol. Current Diet Ordered: Regular textures / Thin liquids Dentition: WNL and Natural Teeth Mental Status: WNL Respiratory Status: Oxygenating on Room Air Penetration-Aspiration Scale Penetration-Aspiration Scale: OBJECTIVE ASSESSMENT OF SWALLOW FUNCTION (QUANTITATIVE ? PER TRIAL): PENETRATION / ASPIRATION SCALE (WITT): 1 = does not enter airway 2 = enters airway/above vocal folds/ejected 3 = enters airway/above vocal folds/not ejected 4 = enters airway/contacts vocal folds/ejected 5 = enters airway/contacts vocal folds/not ejected 6 = enters airway/below vocal folds/ejected 7 = enters airway/below vocal folds/not ejected despite effort 8 = enters airway/below vocal folds/no effort VIDEOFLOROSCOPIC SCALE SCORE (WITT): Grade I = aspiration of material that has penetrated into the laryngeal vestibule, intact cough reflex Grade II = aspiration < 10 % of the bolus, intact cough reflex Grade III = aspiration of < 10 % of the bolus, reduced cough reflex or aspiration of > 10 % of the bolus, intact cough reflex Grade IV = aspiration of > 10 % of the bolus, reduced cough reflex Penetration-Aspiration Scale Score Thin Liquid via teaspoon: Result: 1= does not enter airway Thin Liquid via teaspoon Trial 2: Result: 1= does not enter airway Thin Liquid via sequential sips: cup: Result: 1= does not enter airway Comment: Esophageal screen - Retention in the lower esophagus w/ retrograde flow, eventual clearance through the LES. Pudding via teaspoon: Result: 1= does not enter airway Comment: Esophageal screen - Retention throughout the middle and lower esophagus. 1/2 Cookie: Result: 1= does not enter airway Comment: Esophageal screen - Minimal retention in the lower esophagus. Thin Liquid via sequential sips:straw: Result: 1= does not enter airway Comment: Esophageal screen - Complete clearance. Oral Phase Labial Seal: No Labial Escape Tongue Control During Bolus Hold: Posterior escape of greater than half of bolus Bolus Preparation/Mastication: Timely and efficient chewing and mashing Bolus Transport/Lingual Motion: Delayed initiation of tongue motion Oral Residue: Trace residue lining oral structures Pharyngeal Phase Initiation of Pharyngeal Swallow: Bolus head in pyriforms Soft Palate Elevation: Trace column of contrast/air between soft palate and pharyngeal wall Laryngeal Elevation: Comp. Superior move thyroid cart w/comp. apprx arytenoid cart-epig pet Anterior Hyoid Excursion: Complete anterior movement Epiglottic Movement: Complete inversion Laryngeal Vestibule Closure at Height of Swallow: Complete; no air/contrast in laryngeal vestibule Pharyngeal Stripping Wave: Present - complete Pharyngoesophageal Segment Opening: Parital distension and partial duration; parital obstruction of flow Tongue Base Retraction: Trace column of contrast between tongue base & post. pharyngeal wall Pharyngeal Residue: Trace residue within or on pharyngeal structures Esophageal Phase Esophageal Clearance: Esophageal retention w/ retrograde flow below pharyngoesophageal seg. 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 The patient verbalized understanding. The esophageal phase is primarily marked by... -Retention of liquids in the lower esophagus w/ retrograde flow and then eventual clearance through the UES. -Mild retention of pudding in the middle and lower esophagus. Minimal retention of cookie in the lower esophagus. Liquid wash fully cleared the esophagus. Recommendations Diet: Regular Textures and Thin Liquids Compensatory Strategies: Small Bites, Small Sips, Slow Rate, Alternate bites/solids and sips/liquids, Sitting upright and Remain sitting upright for 30 minutes after PO intake Recommend Repeat Modified Barium Swallow: No Need for Skilled Speech Therapy Services: No Recommended Referrals: GI Consult (Esophageal retention of barium and pt reports s/s of GERD. If recommended by GI or physician, pt is safe for esophagram.) Education Completed: 1. Described result of evaluation. Status Active ST Patient: Active Contact Information [facility] Speech Therapy:: Joseline Shipman M.A. CCC-FRUIT DUMPER? Speech-Language Pathologist?? [facility] [address] [place] [address]? [email or web address]?? [phone]
== END | disposition home or self-care (01) ==
PROVIDERS: PCP Family Medicine; Referring Provider Internal Medicine Pulmonary Disease; Visit Provider Internal Medicine Pulmonary Disease
DX: R05.9 Cough, unspecified (principal)
CPT/HCPCS: 74230; 92611

== ENCOUNTER → 2025-03-21 | Outpatient (CLI) | payer MEDICARE, SELFPAY ==
--- NOTE | 2025-03-21 08:03 | CT_ITS ---
PROCEDURE: CHEST WITHOUT CONTRAST 03/21/2025 REASON FOR EXAM: PULMONARY NODULE Follow-up examination. TECHNIQUE: Chest CT without contrast. Coronal and Sagittal reconstruction series were provided. One or more dose reduction techniques were used (e.g., Automated exposure control, adjustment of the mA and/or kV according to patient size, use of iterative reconstruction technique RADIATION DOSE SUMMARY: CTDlvol: 20.15 mGy DLP: 927.42 mGycm COMPARISON: None FINDINGS: Hardware: None Lymph nodes: Small benign-appearing bilateral axillary and mediastinal lymph nodes. Calcified bilateral hilar lymph nodes and subcarinal lymph nodes. Heart and Vasculature: The heart is nonenlarged. Coronary Artery Calcifications: Present Lungs and Airways: No pulmonary nodules seen. No focal infiltrate or mass lesion. Pleura: No pleural effusion. Upper Abdomen: Diffuse fatty infiltration of the liver. There is a 1.2 cm calculus in the left renal pelvis. There is evidence of a 3.5 cm cyst in the midportion of the left kidney. Bones: Degenerative changes of the thoracic spine. CT/Chest without Contrast IMPRESSION: Coronary artery calcification (CAC) is is present No pulmonary nodule is seen. Reading Location: [id number]
== END | disposition home or self-care (01) ==
LOC: CT 08:01
PROVIDERS: PCP Family Medicine; Referring Provider Internal Medicine Pulmonary Disease; Visit Provider Internal Medicine Pulmonary Disease
DX: R91.1 Solitary pulmonary nodule (principal)
CPT/HCPCS: 71250